=== PATIENT | female | born 1970 | race Two or more races ===

== ENCOUNTER 2017-04-09 11:31 | Observation (INO) | payer OTHER ==
[~2017-04-09] VITALS: Ht 157.5 cm; Wt 73.9 kg
[~2017-04-09 11:31] MED LIST: ALBU8.5H6 IH; CEPH-264; FLUT1DIS3 IH; GABA-585 PO; HYDR-2165; HYDR1TAB10 PO; HYDR25TA PO; METF500T4; ONDA4TAB7 PO; ONDA8TAB12 PO; PROM25TA10; SERT50TA PO
--- NOTE | 2017-04-09 12:03 | ED.ADGEN ---
Past History Past Medical History: Anxiety, Asthma, Diabetes, Other Past Surgical History: Cholecystectomy, Gastric Bypass, Other Smoking: Non-smoker Alcohol Use: None Drug Use: None Adult General Chief Complaint Chief Complaint Chest pain HPI HPI Patient is a 46 year old female who presents with chest pain shortness of breath. She states she was eating breakfast and started having substernal sharp chest pain that does not radiate she also felt short of breath. She denies any nausea or vomiting or diaphoresis. She states she's had this before and thought it was her esophagus spasming since she's had her gastric sleeve placed in May 2017 at [facility]. She states now the pain is intermittent and comes and goes nothing makes it better or worse and she still feels slightly short of breath. She states she does have a family history of heart attack her dad had a heart attack at age of 46. She states she's never been evaluated for cardiac problems in the past. Review of Systems Review of Systems Constitutional: Denies fever or chills [] Eyes: Denies change in visual acuity, redness, or eye pain [] HENT: Denies nasal congestion or sore throat [] Respiratory: Denies cough or shortness of breath [] Cardiovascular: No additional information not addressed in HPI [] GI: Denies abdominal pain, nausea, vomiting, bloody stools or diarrhea [] : Denies dysuria or hematuria [] Musculoskeletal: Denies back pain or joint pain [] Integument: Denies rash or skin lesions [] Neurologic: Denies headache, focal weakness or sensory changes [] Endocrine: Denies polyuria or polydipsia [] Current Medications Current Medications Current Medications Medications (Trade) Dose Ordered Sig/Jaden Start Time Stop Time Status Last Admin Dose Admin Aspirin (Children'S Aspirin) 324 mg 1X ONCE 04/09/17 12:20 04/09/17 12:21 DC 04/09/17 12:20 324 MG Morphine Sulfate (Morphine 2mg Syringe) 2 mg PRN Q2HR PRN 04/09/17 13:00 04/10/17 12:59 Nitroglycerin (Nitrostat) 0.4 mg PRN Q5MIN PRN 04/09/17 13:00 04/10/17 12:59 Cancel Ondansetron HCl (Zofran) 4 mg PRN Q4HRS PRN 04/09/17 13:00 04/10/17 12:59 Allergies Allergies Allergies Coded Allergies Type Severity Reaction Last Updated Verified codeine Allergy Intermediate hives 09/06/16 Yes Physical Exam Physical Exam Constitutional: Well developed, well nourished, no acute distress, non-toxic appearance. [] HENT: Normocephalic, atraumatic, bilateral external ears normal, oropharynx moist, no oral exudates, nose normal. [] Eyes: PERRLA, EOMI, conjunctiva normal, no discharge. [] Neck: Normal range of motion, no tenderness, supple, no stridor. [] Cardiovascular:Heart rate regular rhythm, no murmur [] Lungs & Thorax: Bilateral breath sounds clear to auscultation [] Abdomen: Bowel sounds normal, soft, no tenderness, no masses, no pulsatile masses. [] Skin: Warm, dry, no erythema, no rash. [] Back: No tenderness, no CVA tenderness. [] Extremities: No tenderness, no cyanosis, no clubbing, ROM intact, no edema. [] Neurologic: Alert and oriented X 3, normal motor function, normal sensory function, no focal deficits noted. [] Psychologic: Affect normal, judgement normal, mood normal. [] Current Patient Data Vital Signs Vital Signs Date Time Temp Pulse Resp B/P (MAP) Pulse Ox O2 Delivery O2 Flow Rate FiO2 04/09/17 12:30 91 16 106/83 (91) 93 04/09/17 11:37 Room Air Lab Results Laboratory Tests Test 04/09/17 11:45 White Blood Count 8.1 x10^3/uL (4.0-11.0) Red Blood Count 5.07 x10^6/uL (3.50-5.40) Hemoglobin 15.3 g/dL (12.0-15.5) Hematocrit 45.3 % (36.0-47.0) Mean Corpuscular Volume 89 fL (79-100) Mean Corpuscular Hemoglobin 30 pg (25-35) Mean Corpuscular Hemoglobin Concent 34 g/dL (31-37) Red Cell Distribution Width 13.5 % (11.5-14.5) Platelet Count 232 x10^3/uL (140-400) Neutrophils (%) (Auto) 48 % (31-73) Lymphocytes (%) (Auto) 42 % (24-48) Monocytes (%) (Auto) 8 % (0-9) Eosinophils (%) (Auto) 1 % (0-3) Basophils (%) (Auto) 1 % (0-3) Neutrophils # (Auto) 3.9 x10^3uL (1.8-7.7) Lymphocytes # (Auto) 3.4 x10^3/uL (1.0-4.8) Monocytes # (Auto) 0.6 x10^3/uL (0.0-1.1) Eosinophils # (Auto) 0.1 x10^3/uL (0.0-0.7) Basophils # (Auto) 0.1 x10^3/uL (0.0-0.2) Prothrombin Time 11.0 SEC (9.4-11.4) Prothrombin Time INR 1.1 (0.9-1.1) PTT 26 SEC (23-33) D-Dimer (Helen) < 0.19 mg/L (0.00-0.50) Sodium Level 136 mmol/L (136-145) Potassium Level 3.8 mmol/L (3.5-5.1) Chloride Level 102 mmol/L (98-107) Carbon Dioxide Level 24 mmol/L (21-32) Anion Gap 10 (6-14) Blood Urea Nitrogen 12 mg/dL (7-20) Creatinine 0.9 mg/dL (0.6-1.0) Estimated GFR (Cockcroft-Gault) 67.4 Glucose Level 132 mg/dL (70-99) H Calcium Level 9.3 mg/dL (8.5-10.1) Magnesium Level 2.4 mg/dL (1.8-2.4) Total Bilirubin 0.4 mg/dL (0.2-1.0) Direct Bilirubin 0.1 mg/dL (0.0-0.2) Aspartate Amino Transferase (AST) 18 U/L (15-37) Alanine Aminotransferase (ALT) 30 U/L (14-59) Alkaline Phosphatase 87 U/L (46-116) Creatine Kinase 44 U/L (26-192) Creatine Kinase MB (Mass) < 0.5 ng/mL (0.0-3.6) Creatine Kinase MB Relative Index 1.1 % (0-4) Troponin I Quantitative < 0.017 ng/mL (0-0.055) EX-Qtk-O-Type Natriuretic Peptide 32 pg/mL (0-124) Total Protein 8.4 g/dL (6.4-8.2) H Albumin 3.9 g/dL (3.4-5.0) Lipase 1036 U/L (73-393) H Serum Test, Qualitative Negative (NEG) EKG EKG EKG shows sinus rhythm with rate of [address] elevations, T-wave inversions noted in lead 3, normal axis, QTC 420 ms, as interpreted by me. Radiology/Procedures Radiology/Procedures [address] [address] IMAGING REPORT Signed PATIENT: REJI LIMON ACCOUNT: [id number] : 1970 LOCATION: ER AGE: 46 SEX: F EXAM STATUS: REG ER ORD. PHYSICIAN: VIVEK LINDO MD REASON: chest pain PROCEDURE: PORTABLE CHEST 1V Portable AP chest. History: Chest pain AP view was taken of the chest. Lungs are clear. Heart is normal in size. There is no pleural effusion. Impression: 1. No acute chest disease. DICTATED AND SIGNED BY: EMIGDIO STOVER MD DATE: 04/09/17 1367 CC: VIVEK LINDO MD; RAJENDRA RASMUSSEN MD ~ Course & Med Decision Making Course & Med Decision Making Pertinent Labs and Imaging studies reviewed. (See chart for details) She presented with chest discomfort that was relieved with nitroglycerin. 324 aspirin was given. EKG, troponins are negative. Patient is being admitted to Dr. Victor. I spoke with Dr. Monk, these okay with her being admitted to [facility] for chest pain rule out and likely stress test tomorrow. Patient's agreeable plans in stable condition at this time. 134. Lipase is elevated at 1000. I do not appreciate that she has abdominal pain and her pain resolved after nitroglycerin. Do not believe she has acute pancreatitis at this time however were deferred to hospitalists for further evaluation and treatment. Final Impression Final Impression Chest pain Elevated lipase Problems: Dragon Disclaimer Dragon Disclaimer This electronic medical record was generated, in whole or in part, using a voice recognition dictation system. VIVEK LINDO MD Apr 09, 2017 12:03
[2017-04-09 12:06] LABS: BASO # 0.1 x10^3/uL (0.0-0.2); BASO % 1 % (0-3); EOS # 0.1 x10^3/uL (0.0-0.7); EOS % 1 % (0-3); HEMATOCRIT 45.3 % (36.0-47.0); HEMOGLOBIN 15.3 g/dL (12.0-15.5); LYMPH # 3.4 x10^3/uL (1.0-4.8); LYMPH % 42 % (24-48); MEAN CORPUSCULAR HEMOGLOBIN 30 pg (25-35); MEAN CORPUSCULAR HGB CONC 34 g/dL (31-37); MEAN CORPUSCULAR VOLUME 89 fL (79-100); MONO # 0.6 x10^3/uL (0.0-1.1); MONO % 8 % (0-9); NEUT # 3.9 x10^3uL (1.8-7.7); NEUT % 48 % (31-73); PLATELET COUNT 232 x10^3/uL (140-400); RED BLOOD COUNT 5.07 x10^6/uL (3.50-5.40); RED CELL DISTRIBUTION WIDTH 13.5 % (11.5-14.5); WHITE BLOOD COUNT 8.1 x10^3/uL (4.0-11.0)
[2017-04-09 12:14] LABS: PREG TEST PT QUAL NEGATIVE (NEG)
[2017-04-09] MEDS ORDERED: ASPIRIN 81 MG TAB.CHEW PO ONE (12:20)
[2017-04-09] MEDS: NITROGLYCERIN SUBLINGUAL 0.4 MG BOTTLE OF 25. SL PRN ×2 (12:21→15:54)
[2017-04-09 12:39] LABS: ALBUMIN 3.9 g/dL (3.4-5.0); ALK PHOS 87 U/L (46-116); ALT (SGPT) 30 U/L (14-59); ANION GAP 10 (6-14); AST (SGOT) 18 U/L (15-37); BLOOD UREA NITROGEN 12 mg/dL (7-20); CALCIUM 9.3 mg/dL (8.5-10.1); CARBON DIOXIDE 24 mmol/L (21-32); CHLORIDE 102 mmol/L (98-107); CREATINE KINASE 44 U/L (26-192); CREATININE 0.9 mg/dL (0.6-1.0); DIRECT BILIRUBIN 0.1 mg/dL (0.0-0.2); GFR 67.4; GLUCOSE 132 mg/dL (70-99); LIPASE 1036 U/L (73-393); MAGNESIUM 2.4 mg/dL (1.8-2.4); POTASSIUM 3.8 mmol/L (3.5-5.1); SODIUM 136 mmol/L (136-145); TOTAL BILIRUBIN 0.4 mg/dL (0.2-1.0); TOTAL PROTEIN 8.4 g/dL (6.4-8.2)
[2017-04-09] MEDS ORDERED: NITROGLYCERIN SUBLINGUAL 0.4 MG BOTTLE OF 25. SL PRN (13:00)
[2017-04-09] MEDS ORDERED: ONDANSETRON PF 4 MG/2 ML VIAL. IV PRN (13:00)
--- NOTE | 2017-04-09 14:27 | EKG ---
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
[2017-04-09 15:24] VITALS: BP 107/75
[2017-04-09] MEDS: MORPHINE SULFATE 2 MG/ML DISP.SYRIN. IV PRN ×2 (15:27→21:37)
[2017-04-09] MEDS ORDERED: PHEN30CA2 PO (16:11)
[2017-04-09] MEDS ORDERED: ONDA4TAB12 PO (16:11)
[2017-04-09 16:40] VITALS: BP 107/75
[2017-04-09 19:47] VITALS: BP 100/62
[2017-04-09 21:54] VITALS: BP 108/79
[2017-04-09 22:05] LABS: AMPHETAMINE/METHAMPHETAMINE POS (NEG); BARBITURATES NEG (NEG); BENZODIAZEPINES NEG (NEG); CANNABINOIDS NEG (NEG); COCAINE NEG (NEG); METHADONE NEG (NEG); OPIATES POS (NEG); PHENCYCLIDINE NEG (NEG)
[2017-04-09 22:12] LABS: BACTERIA,URINE MOD /HPF (0-FEW); BILIRUBIN,URINE NEG (NEG); CLARITY,URINE HAZY; COLOR,URINE YELLOW; GLUCOSE,URINE NEG (NEG); NITRITE,URINE NEG (NEG); SQUAMOUS EPITHELIAL CELL,UR MOD /LPF; UROBILINOGEN,URINE 0.2 mg/dL (0.2 mg/dL)
--- NOTE | 2017-04-10 05:03 | ACF ---
Admission Criteria Forms CARDIOLOGY GRG Clinical Indications for Admission to Inpatient Care ( Place 'X' for any and all applicable criteria): Hospital admission is needed for appropriate care of the patient because of ANY ONE of the following (1): [ ] I. Hemodynamic instability as indicated by ALL of the following (1)(2)(3) (4)(5) [ ]a) Vital signs or other findings not as expected for chronic patient condition or baseline [ ]b) Instability indicated by ANY ONE of the following: [ ]i) Hypotension [ ]ii) Symptomatic Tachycardia unresponsive to treatment ( e.g., analgesia, fluids, sedation as indicated) [ ]iii) Inadequate perfusion indicated by ANY ONE of the following: [ ] 1) Lactic acidosis (> 2 mmol/L) [ ] 2) New abnormal capillary refill (> 3 seconds) [ ] 3) Reduced urine output [ ] 4) New altered mental status [ ]iv) Orthostatic vital sign changes unresponsive to treatment (e.g., fluids) [ ]v) IV inotropic or vasopressor medication required to maintain adequate blood pressure or perfusion [ ] II. Severe heart failure as indicated by ANY ONE of the following(17)(18) [ ]a) Respiratory distress [ ]b) Hypotension [ ]c) Anasarca (refractory to outpatient therapy) [ ]d) Cardiac arrhythmias of immediate concern [ ]e) Myocardial ischemia [ ] III. Cardiac arrhythmias or findings of immediate concern indicated by ANY ONE of the following (19)(20): [ ] a) Heart rhythms that are inherently dangerous or unstable indicated by ANY ONE of the following (21)(22)(23): [ ] i) Resuscitated ventricular fibrillation or cardiac arrest [ ] ii) Ventricular escape rhythm [ ] iii) Sustained ventricular tachycardia (30 seconds or more of ventricular rhythm at greater than 100 beats per minute) [ ] iv) Nonsustained ventricular tachycardia and ANY ONE of the following: [ ] 1) Suspected cardiac ischemia as cause or consequence of ventricular tachycardia [ ] 2) In setting of acute myocarditis [ ] b) Unstable cardiac conduction defects indicated by ANY ONE of the following(23)(24)(25) [ ] i) Type II second-degree atrioventricular block [ ]ii) Third-degree atrioventricular block [ ]iii) New-onset left bundle branch block with suspected myocardial ischemia [ ]c) Any heart rhythm and ANY ONE of the following (21)(22)(26)(27) (28) [ ] i) Continuous long-term ECG monitoring needed (e.g., initiation of drug requiring monitoring for more than 24 hours) [ ] ii) Patient has automatic implanted cardioverter defibrillator that is repeatedly firing, malfunctioning, or in need of immediate adjustment of settings beyond the scope of ambulatory or observation care [ ]d) Heart rhythms of concern due to ANY ONE of the following: [ ] i) Hypotension [ ] ii) Respiratory distress [ ] iii) Association with other significant symptoms (e.g., bradycardia with syncope or ongoing dizziness, supraventricular tachycardia with chest pain (14)(15)(17) [ ] IV. Monitoring for cardiac contusion beyond the scope of observation care needed [A](30)(31)(32) [ ] V. Surgical or device complication (e.g., valve replacement complication , pacemaker dysfunction) (35)(41)(44)(45)(46) [ ] . Inpatient palliative care needed. [B](49) Also use Inpatient Palliative Care Criteria [ ] VII. Nonbacterial thrombotic (marantic) endocarditis (36)(43)(47)(48) [X ] VIII. Cardiology condition, symptom, or finding for which emergency and observation care has failed or are not considered appropriate. [ ] IX. Acute valvular disease requiring inpatient as indicated by ANY ONE of the following (41) [ ]a) Acute valvular regurgitation (42) [ ]b) Noninfectious valvulitis (43) [ ]c) Obstructive valve thrombosis [ ]d) Paravalvular leak [ ]e) Other significant valvular disorder remaining after emergency or observation level of care (as appropriate) [ ]X. Pericardial disease requiring inpatient treatment as indicated by ANY ONE of the following (33)(34)(35)(36)(37) [ ]a) Suspected tamponade (38)(39)(40) [ ]b) Hemopericardium [ ]c) Other significant pericardial disorder remaining after emergency or observation level of care (as appropriate) [ ] XI. Cardiac ischemia beyond scope of emergency and observation care. [ ] XII. Hypertension requiring inpatient treatment as indicated by ANY ONE of the following (6)(7)(8) [ ]a) SBP greater than 220 mm Hg or DBP greater than 120 mmHg despite treatment [ ]b) SBP greater than 140 mm Hg or DBP greater than 100 mm Hg with evidence of acute end organ damage as indicated by ANY ONE of the following [ ] i) Encephalopathy [ ] ii) Acute renal failure as indicated by new onset of ANY ONE of the following (9)(10)(11)(12)(13) [ ]1) 3-fold rise in serum creatinine from baseline [ ]2) Serum creatinine greater than 4 mg/dL ( 354 micromoles/L) with acute rise greater than 0.5 mg/dL (44.2 micromoles/L) [ ]3) Reduction of more than 75% in estimated glomerular filtration rate from baseline [ ]4) Estimated glomerular filtration rate less than 35 mL/min/1.73m2 (0.59 mL/sec/1.73m2) in child up to 18 years of age [ ]5) Cessation of urine output indicated by ALL of the following [ ]A. Adequate volume status [ ]B. Inadequate urine output as indicated by ANY ONE of the following [ ]a. Urine output less than 0.3 mL/kg/hr for 24 hours [ ]b. Anuria (urine output less than 0.1 mL/kg/hr) for 12 hours [ ] iii) Aortic dissection [ ] iv) Myocardial Ischemia [ ] v) Left ventricular heart failure [ ]vi) Retinal Hemorrhage [ ]vii) Other significant finding [ ]c) Hypertension in child requiring inpatient treatment as indicated by ALL of the following(14)(15)(16) [ ] i) Outpatient treatment not effective, not available, or not appropriate [ ]ii) SBP or DBP greater than 95th percentile for age [ ]iii) Evidence of acute end organ damage as indicated by ANY ONE of the following [ ]1) Altered mental status [ ]2) Acute renal failure as indicated by new onset of ANY ONE of the following(9)(10)(11)(12)(13) [ ]A. 3-fold rise in serum creatinine from baseline [ ]B. Serum creatinine greater than 4 mg/dL (354 micromoles/L) with acute rise greater than 0.5 mg/dL (44.2 micromoles/L) [ ]C. Reduction of more than 75% in estimated glomerular filtration rate from baseline [ ]D. Estimated glomerular filtration rate less than 35 mL/min/1.73m2 (0.59 mL/sec/1.73m2) in child up to 18 years of age [ ]E. Cessation of urine output indicated by ALL of the following [ ]a. Adequate volume status [ ]b. Inadequate urine output as indicated by ANY ONE of the following [ ]i) Urine output less than 0.3 mL/kg/hr for 24 hours [ ]ii) Anuria ( urine output less than 0.1 mL/kg/hr) for 12 hours [ ]3) Severe headache [ ]4) Visual disturbance [ ]5) Retinal hemorrhage [ ]6) Other significant finding [ ]XIII. Complications of transplanted heart indicated by ANY ONE of the following(61): [ ]a) Acute graft rejection requiring inpatient management (eg, intravenous immunosuppression)(62)(63) [ ]b) Acute graft heart failure indicated by ANY ONE of the following(64): [ ]i) Hemodynamic instability [ ]ii) Cardiac arrhythmias of immediate concern [ ]iii) Pulmonary edema that is very severe (eg, mechanical ventilation needed, imminent or likely, need for 100% oxygen to keep oxygen saturation above 90%) [ ]iv) Pulmonary edema that is persistent as indicated by ALL of the following: [ ]1) New need for oxygen therapy to keep oxygen saturation above 90% (or increased FiO2 need from baseline) [ ]2) Has not improved sufficiently with emergency department or observation care IV diuretics or other heart failure treatments[E] [ ]v) Altered mental status that is severe or persistent [ ]vi) Increased creatinine (new on laboratory test) with reduction of more than 50% in estimated glomerular filtration rate from baseline [ ]vii) Progressively (ongoing) rising creatinine (known from past laboratory test) with reduction of more than 25% in estimated glomerular filtration rate from baseline [ ]viii) Acute renal failure [ ]ix) Acute peripheral ischemia (eg, examination shows pulseless, cool, mottled, or cyanotic extremity) [ ]x) Pulmonary artery catheter monitoring needed [ ]xi) Other sign or symptom of heart failure requiring inpatient treatment (ie, too severe or not responsive to outpatient and observation care treatment) [ ]c) Infection requiring inpatient management (eg, Hemodynamic instability, need for intravenous antimicrobial treatment)(66)(67)(68)(69)(70) [ ]d) Cardiac allograft vasculopathy requiring inpatient management ( eg evidence of cardiac ischemia)(71) [ ]e) Other complication of transplanted heart (eg, stroke, severe pulmonary hypertension, severe valvular dysfunction) requiring inpatient management(72) The original [facility] content created by [facility] has been revised. The portions of the content which have been revised are identified through the use of italic text or in bold, and [facility] has neither reviewed nor approved the modified material. All other unmodified content is copyright [facility]. Please see references footnoted in the original [facility] edition 2016 Admission Criteria Met?: Yes CEASAR ADAN Apr 10, 2017 05:03
[2017-04-10 05:44] VITALS: BP 96/59
[2017-04-10 06:11] LABS: CALCIUM 8.4 mg/dL (8.5-10.1); CREATININE 0.8 mg/dL (0.6-1.0); GFR 77.2; POTASSIUM 3.7 mmol/L (3.5-5.1)
[2017-04-10 06:13] LABS: BASO # 0.1 x10^3/uL (0.0-0.2); BASO % 1 % (0-3); EOS # 0.1 x10^3/uL (0.0-0.7); EOS % 1 % (0-3); LYMPH # 3.3 x10^3/uL (1.0-4.8); LYMPH % 39 % (24-48); MEAN CORPUSCULAR HEMOGLOBIN 30 pg (25-35); MEAN CORPUSCULAR HGB CONC 33 g/dL (31-37); MEAN CORPUSCULAR VOLUME 90 fL (79-100); MONO # 0.6 x10^3/uL (0.0-1.1); MONO % 8 % (0-9); NEUT # 4.4 x10^3uL (1.8-7.7); NEUT % 52 % (31-73); PLATELET COUNT 211 x10^3/uL (140-400); RED BLOOD COUNT 4.69 x10^6/uL (3.50-5.40); RED CELL DISTRIBUTION WIDTH 13.9 % (11.5-14.5); WHITE BLOOD COUNT 8.4 x10^3/uL (4.0-11.0)
--- NOTE | 2017-04-10 08:59 | PDOC2 ---
CONSULT Date of Admission DATE: 04/10/17 TIME: 08:58 Reason for Consult: chest pain Problem List Problems Medical Problems: (1) Chest pain Status: Acute History of Present Illness 46 year old female who presented with complaints of chest pain. She describes pressure that is midsternal and radiates to her left shoulder and arm. Pain is non exertional and resolved after about 10 minutes. She reports pain reoccurred and so she presented to ED where it was resolved with nitrates. She denies any increase with exertion. She reports some mild increase with deep inspiration. She reports associated dyspnea, diaphoresis and nausea. She reports some lightheadedness and palpitations associated with the event. She denies any problems with her functional capacity. Past Medical History obesity, diabetes (on no meds since bariatric surgery), asthma, remote history of esophageal ulcers, degenerative disc disease and chronic back pain. Past Surgical History gastric sleeve in may. Family History father had FL at age 46 Social History non smoker, no significant ETOH, no illicit drugs Current Medications Current Medications Aspirin (Children'S Aspirin) 324 mg 1X ONCE PO Last administered on 04/09/17 12:20; Start 04/09/17 at 12:20; Stop 04/09/17 at 12:21; Status DC Nitroglycerin (Nitrostat) 0.4 mg PRN Q5MIN PRN SL CP RATING > 1/10 Last administered on 04/09/17 15:54; Start 04/09/17 at 12:10; Stop 04/10/17 at 12:09 Ondansetron HCl (Zofran) 4 mg PRN Q4HRS PRN IV NAUSEA/VOMITING; Start 04/09/17 at 13:00; Stop 04/10/17 at 12:59 Morphine Sulfate (Morphine 2mg Syringe) 2 mg PRN Q2HR PRN IV PAIN Last administered on 04/09/17 21:37; Start 04/09/17 at 13:00; Stop 04/10/17 at 12:59 Nitroglycerin (Nitrostat) 0.4 mg PRN Q5MIN PRN SL CHEST PAIN; Start 04/09/17 at 13:00; Stop 04/10/17 at 12:59; Status Cancel Active Scripts Active Zofran (Ondansetron Hcl) 4 Mg Tablet 1 Tab PO Q8HRS PRN Zofran Odt (Ondansetron) 8 Mg Tab.rapdis 8 Mg PO QIDPRN PRN Reported Albuterol Sulfate Hfa Inhaler (Albuterol Sulfate) 8.5 Gm Hfa.aer.ad 90 Mcg IH PRN Advair 250-50 Diskus (Fluticasone/Salmeterol) 1 Each Disk.w.dev 1 Puff IH BID Allergies: Coded Allergies: codeine (Verified Allergy, Intermediate, hives, 09/06/16) Review of System as per HPI with addition of chronic back pain. General: Alert, Oriented X3, Cooperative, No acute distress HEENT: Atraumatic, EOMI, Mucous membr. moist/pink Heart: Regular rate, Normal S1, Normal S2, No murmurs, Other (no gallops, clicks or rubs) Abdomen: Normal bowel sounds, Soft, No tenderness Extremities: No cyanosis, No edema, Normal pulses Neuro: Normal speech Psych/Mental Status: Mental status NL, Mood NL VITALS Vital Signs Date Time Temp Pulse Resp B/P (MAP) Pulse Ox O2 Delivery O2 Flow Rate FiO2 04/10/17 07:52 Room Air 04/10/17 05:44 97.6 77 18 96/59 (71) 98 Labs Laboratory Tests Test 04/09/17 11:45 04/09/17 17:45 04/09/17 21:30 04/09/17 23:40 White Blood Count 8.1 x10^3/uL (4.0-11.0) Red Blood Count 5.07 x10^6/uL (3.50-5.40) Hemoglobin 15.3 g/dL (12.0-15.5) Hematocrit 45.3 % (36.0-47.0) Mean Corpuscular Volume 89 fL (79-100) Mean Corpuscular Hemoglobin 30 pg (25-35) Mean Corpuscular Hemoglobin Concent 34 g/dL (31-37) Red Cell Distribution Width 13.5 % (11.5-14.5) Platelet Count 232 x10^3/uL (140-400) Neutrophils (%) (Auto) 48 % (31-73) Lymphocytes (%) (Auto) 42 % (24-48) Monocytes (%) (Auto) 8 % (0-9) Eosinophils (%) (Auto) 1 % (0-3) Basophils (%) (Auto) 1 % (0-3) Neutrophils # (Auto) 3.9 x10^3uL (1.8-7.7) Lymphocytes # (Auto) 3.4 x10^3/uL (1.0-4.8) Monocytes # (Auto) 0.6 x10^3/uL (0.0-1.1) Eosinophils # (Auto) 0.1 x10^3/uL (0.0-0.7) Basophils # (Auto) 0.1 x10^3/uL (0.0-0.2) Prothrombin Time 11.0 SEC (9.4-11.4) Prothromb Time International Ratio 1.1 (0.9-1.1) Activated Partial Thromboplast Time 26 SEC (23-33) D-Dimer (Helen) < 0.19 mg/L (0.00-0.50) Sodium Level 136 mmol/L (136-145) Potassium Level 3.8 mmol/L (3.5-5.1) Chloride Level 102 mmol/L (98-107) Carbon Dioxide Level 24 mmol/L (21-32) Anion Gap 10 (6-14) Blood Urea Nitrogen 12 mg/dL (7-20) Creatinine 0.9 mg/dL (0.6-1.0) Estimated GFR (Cockcroft-Gault) 67.4 Glucose Level 132 mg/dL (70-99) Calcium Level 9.3 mg/dL (8.5-10.1) Magnesium Level 2.4 mg/dL (1.8-2.4) Total Bilirubin 0.4 mg/dL (0.2-1.0) Direct Bilirubin 0.1 mg/dL (0.0-0.2) Aspartate Amino Transf (AST/SGOT) 18 U/L (15-37) Alanine Aminotransferase (ALT/SGPT) 30 U/L (14-59) Alkaline Phosphatase 87 U/L (46-116) Creatine Kinase 44 U/L (26-192) Creatine Kinase MB (Mass) < 0.5 ng/mL (0.0-3.6) Creatine Kinase MB Relative Index 1.1 % (0-4) Troponin I Quantitative < 0.017 ng/mL (0-0.055) < 0.017 ng/mL (0-0.055) < 0.017 ng/mL (0-0.055) XX-Hgw-E-Type Natriuretic Peptide 32 pg/mL (0-124) Total Protein 8.4 g/dL (6.4-8.2) Albumin 3.9 g/dL (3.4-5.0) Lipase 1036 U/L (73-393) Thyroid Stimulating Hormone (TSH) 3.871 uIU/mL (0.358-3.740) Serum Test, Qualitative Negative (NEG) Urine Collection Type Unknown Urine Color Yellow Urine Clarity Hazy Urine pH 6.0 Urine Specific [place] 1.025 Urine Protein Neg (NEG-TRACE) Urine Glucose (UA) Neg mg/dL (NEG) Urine Ketones (Stick) Neg mg/dL (NEG) Urine Blood Mod (NEG) Urine Nitrite Neg (NEG) Urine Bilirubin Neg (NEG) Urine Urobilinogen Dipstick 0.2 mg/dL (0.2 mg/dL) Urine Leukocyte Esterase Trace (NEG) Urine RBC 1-2 /HPF (0-2) Urine WBC 11-20 /HPF (0-4) Urine Squamous Epithelial Cells Mod /LPF Urine Transitional Epithelial Cells Few /LPF Urine Bacteria Mod /HPF (0-FEW) Urine Mucus Mod /LPF Urine Opiates Screen Pos (NEG) Urine Methadone Screen Neg (NEG) Urine Barbiturates Neg (NEG) Urine Phencyclidine Screen Neg (NEG) Urine Amphetamine/Methamphetamine Pos (NEG) Urine Benzodiazepines Screen Neg (NEG) Urine Cocaine Screen Neg (NEG) Urine Cannabinoids Screen Neg (NEG) Urine Ethyl Alcohol Neg (NEG) Test 04/10/17 05:37 White Blood Count 8.4 x10^3/uL (4.0-11.0) Red Blood Count 4.69 x10^6/uL (3.50-5.40) Hemoglobin 14.0 g/dL (12.0-15.5) Hematocrit 42.0 % (36.0-47.0) Mean Corpuscular Volume 90 fL (79-100) Mean Corpuscular Hemoglobin 30 pg (25-35) Mean Corpuscular Hemoglobin Concent 33 g/dL (31-37) Red Cell Distribution Width 13.9 % (11.5-14.5) Platelet Count 211 x10^3/uL (140-400) Neutrophils (%) (Auto) 52 % (31-73) Lymphocytes (%) (Auto) 39 % (24-48) Monocytes (%) (Auto) 8 % (0-9) Eosinophils (%) (Auto) 1 % (0-3) Basophils (%) (Auto) 1 % (0-3) Neutrophils # (Auto) 4.4 x10^3uL (1.8-7.7) Lymphocytes # (Auto) 3.3 x10^3/uL (1.0-4.8) Monocytes # (Auto) 0.6 x10^3/uL (0.0-1.1) Eosinophils # (Auto) 0.1 x10^3/uL (0.0-0.7) Basophils # (Auto) 0.1 x10^3/uL (0.0-0.2) Sodium Level 138 mmol/L (136-145) Potassium Level 3.7 mmol/L (3.5-5.1) Chloride Level 104 mmol/L (98-107) Carbon Dioxide Level 26 mmol/L (21-32) Anion Gap 8 (6-14) Blood Urea Nitrogen 15 mg/dL (7-20) Creatinine 0.8 mg/dL (0.6-1.0) Estimated GFR (Cockcroft-Gault) 77.2 Glucose Level 113 mg/dL (70-99) Calcium Level 8.4 mg/dL (8.5-10.1) Lipase 140 U/L (73-393) Images EKG - sinus rhythm, non specific st/t abn, delayed R progression. CXR - no acute disease Assessment/Plan 1. chest pain with mixed features, non specific EKG changes and family history of premature coronary disease - FL ruled out. Check echo and MPI today. 2. diabetes mellitus - on no medications since bariatric surgery 3. hypothyroid - per pcp 4. asthma - per pcp 5. unk lipid status - check lipids Problems: CONRAD SEO APRN Apr 10, 2017 08:59
[2017-04-10 12:17] VITALS: BP 94/61
--- NOTE | 2017-04-10 13:01 | PDOC1 ---
History of Present Illness Reason for Visit: Chest pain that is retrosternal radiating to her left shouilder History of Present Illness The pain last for 10 minutes for the first time associated with dyspnea, nausea and diaphoresis. It is not induced by exertion and it recurred and therefore she came to the ER and her pain was relieved by S/L Nitroglycerin She was admitted to [place]/O [place] and consult cardiology team given her strong family history Chief Complaint: CHEST PAIN Allergies: Coded Allergies: codeine (Verified Allergy, Intermediate, hives, 09/06/16) Past Medical History Pulmonary: Asthma GI: GERD, Other (obesity) Musculoskeletal: low back pain (Chronic), Other (degenerative disc disease) Endocrine: Diabetes Review of Systems Review Of Systems Fourteen system , review of systems has been reviewed. See HPI for pertinent positives and negative responses, other fish all other systems are negative, non pertinent or non contributory Allergies: Coded Allergies: codeine (Verified Allergy, Intermediate, hives, 09/06/16) Medications Current Medications Aspirin (Children'S Aspirin) 324 mg 1X ONCE PO Last administered on 04/09/17 12:20; Start 04/09/17 at 12:20; Stop 04/09/17 at 12:21; Status DC Nitroglycerin (Nitrostat) 0.4 mg PRN Q5MIN PRN SL CP RATING > 1/10 Last administered on 04/09/17 15:54; Start 04/09/17 at 12:10; Stop 04/10/17 at 12:09 ; Status DC Ondansetron HCl (Zofran) 4 mg PRN Q4HRS PRN IV NAUSEA/VOMITING; Start 04/09/17 at 13:00; Stop 04/10/17 at 12:59 Morphine Sulfate (Morphine 2mg Syringe) 2 mg PRN Q2HR PRN IV PAIN Last administered on 04/09/17 21:37; Start 04/09/17 at 13:00; Stop 04/10/17 at 12:59 Nitroglycerin (Nitrostat) 0.4 mg PRN Q5MIN PRN SL CHEST PAIN; Start 04/09/17 at 13:00; Stop 04/10/17 at 12:59; Status Cancel Active Scripts Active Zofran (Ondansetron Hcl) 4 Mg Tablet 1 Tab PO Q8HRS PRN Zofran Odt (Ondansetron) 8 Mg Tab.rapdis 8 Mg PO QIDPRN PRN Reported Albuterol Sulfate Hfa Inhaler (Albuterol Sulfate) 8.5 Gm Hfa.aer.ad 90 Mcg IH PRN Advair 250-50 Diskus (Fluticasone/Salmeterol) 1 Each Disk.w.dev 1 Puff IH BID Exam Vital Signs Vital Signs Date Time Temp Pulse Resp B/P (MAP) Pulse Ox O2 Delivery O2 Flow Rate FiO2 04/10/17 12:17 97.7 70 20 94/61 (72) 97 Room Air General Appearance: Alert, Oriented X3, Cooperative, No acute distress HEENT: Atraumatic, PERRLA, EOMI Respiratory: Clear to auscultation Heart: Regular rate, Normal S1, Normal S2, No murmurs, Gallops, Rubs Abdominal: Normal bowel sounds, No tenderness, No masses Extremities: No clubbing, No cyanosis, No edema, No tenderness/swelling Skin: No rashes, No breakdown, No significant lesion Neuro: Normal gait, Normal speech, Strength at 5/5 X4 ext, Normal tone, Sensation intact, Reflexes 2+ Assessment/Plan Assessment/Plan CP to r/o [place] Will do two more sets of cardiac enzymes check lipid profile consult cardiology COURSE Allergies Coded Allergies Type Severity Reaction Last Updated Verified codeine Allergy Intermediate hives 09/06/16 Yes Laboratory Tests Test 04/09/17 17:45 04/09/17 21:30 04/09/17 23:40 04/10/17 05:37 Troponin I Quantitative < 0.017 ng/mL (0-0.055) < 0.017 ng/mL (0-0.055) Urine Collection Type Unknown Urine Color Yellow Urine Clarity Hazy Urine pH 6.0 Urine Specific [place] 1.025 Urine Protein Neg (NEG-TRACE) Urine Glucose (UA) Neg mg/dL (NEG) Urine Ketones (Stick) Neg mg/dL (NEG) Urine Blood Mod (NEG) Urine Nitrite Neg (NEG) Urine Bilirubin Neg (NEG) Urine Urobilinogen Dipstick 0.2 mg/dL (0.2 mg/dL) Urine Leukocyte Esterase Trace (NEG) Urine RBC 1-2 /HPF (0-2) Urine WBC 11-20 /HPF (0-4) Urine Squamous Epithelial Cells Mod /LPF Urine Transitional Epithelial Cells Few /LPF Urine Bacteria Mod /HPF (0-FEW) Urine Mucus Mod /LPF Urine Opiates Screen Pos (NEG) Urine Methadone Screen Neg (NEG) Urine Barbiturates Neg (NEG) Urine Phencyclidine Screen Neg (NEG) Urine Amphetamine/Methamphetamine Pos (NEG) Urine Benzodiazepines Screen Neg (NEG) Urine Cocaine Screen Neg (NEG) Urine Cannabinoids Screen Neg (NEG) Urine Ethyl Alcohol Neg (NEG) White Blood Count 8.4 x10^3/uL (4.0-11.0) Red Blood Count 4.69 x10^6/uL (3.50-5.40) Hemoglobin 14.0 g/dL (12.0-15.5) Hematocrit 42.0 % (36.0-47.0) Mean Corpuscular Volume 90 fL (79-100) Mean Corpuscular Hemoglobin 30 pg (25-35) Mean Corpuscular Hemoglobin Concent 33 g/dL (31-37) Red Cell Distribution Width 13.9 % (11.5-14.5) Platelet Count 211 x10^3/uL (140-400) Neutrophils (%) (Auto) 52 % (31-73) Lymphocytes (%) (Auto) 39 % (24-48) Monocytes (%) (Auto) 8 % (0-9) Eosinophils (%) (Auto) 1 % (0-3) Basophils (%) (Auto) 1 % (0-3) Neutrophils # (Auto) 4.4 x10^3uL (1.8-7.7) Lymphocytes # (Auto) 3.3 x10^3/uL (1.0-4.8) Monocytes # (Auto) 0.6 x10^3/uL (0.0-1.1) Eosinophils # (Auto) 0.1 x10^3/uL (0.0-0.7) Basophils # (Auto) 0.1 x10^3/uL (0.0-0.2) Sodium Level 138 mmol/L (136-145) Potassium Level 3.7 mmol/L (3.5-5.1) Chloride Level 104 mmol/L (98-107) Carbon Dioxide Level 26 mmol/L (21-32) Anion Gap 8 (6-14) Blood Urea Nitrogen 15 mg/dL (7-20) Creatinine 0.8 mg/dL (0.6-1.0) Estimated GFR (Cockcroft-Gault) 77.2 Glucose Level 113 mg/dL (70-99) Calcium Level 8.4 mg/dL (8.5-10.1) Lipase 140 U/L (73-393) Current Medications Medications (Trade) Dose Ordered Sig/Jaden Route PRN Reason Start Time Stop Time Status Last Admin Dose Admin Ondansetron HCl (Zofran) 4 mg PRN Q4HRS PRN IV NAUSEA/VOMITING 04/09/17 13:00 04/10/17 12:59 Morphine Sulfate (Morphine 2mg Syringe) 2 mg PRN Q2HR PRN IV PAIN 04/09/17 13:00 04/10/17 12:59 04/09/17 21:37 Nitroglycerin (Nitrostat) 0.4 mg PRN Q5MIN PRN SL CHEST PAIN 04/09/17 13:00 04/10/17 12:59 Cancel I & O 04/10/17 00:00 Intake Total 440 ml Balance 440 ml Orders Procedure Category Date Status Time Ed Bridge Order ADT 04/09/17 Transmitted 12:52 Code Status CODE 04/09/17 Transmitted 12:52 Vital Signs, Per MARY 04/09/17 In Process Protocol 12:52 Fall Precautions MARY 04/09/17 In Process 12:52 Cbc W Autodiff LAB 04/10/17 Complete 06:00 Basic Metabolic Panel LAB 04/10/17 Complete 06:00 Ondansetron Pf PHA 04/09/17 In Process (Zofran) 13:00 Morphine Sulfate PHA 04/09/17 In Process (Morphine 2mg Syringe) 13:00 Consult Physician By CONS 04/09/17 Transmitted Name 12:52 Troponin I LAB 04/09/17 Complete 17:52 Troponin I LAB 04/09/17 Complete 23:52 Admit Orders ADT 04/09/17 Transmitted Isolation OTHER 04/09/17 Transmitted 16:44 Cardiac DIET 04/09/17 Complete Dinner Mrsa By Pcr LAB 04/09/17 In Process 16:58 Urine Culture MASON 04/09/17 In Process 22:16 Lipase LAB 04/10/17 Complete 05:00 Nothing By Mouth DIET 04/10/17 Transmitted Breakfast Echocardiogram ECHO 04/10/17 Logged 09:13 Mpi Spect 1day NM 04/10/17 Logged Rest&St Tread 09:13 Lipid Panel LAB 04/10/17 In Process 09:14 Nm Injection NM 04/10/17 Taken Cv Stress Test NM 04/10/17 Taken Tracing Only Vital Signs Date Time Temp Pulse Resp B/P (MAP) Pulse Ox O2 Delivery O2 Flow Rate FiO2 04/10/17 12:17 97.7 70 20 94/61 (72) 97 Room Air ALVARO ANGULO MD Apr 10, 2017 13:01
--- NOTE | 2017-04-10 14:16 | RAD ---
APPROVED REPORT Test Type: Exercise Stress Nurse/Tech: LAURIE Hodge ARRT (R) (N) Test Indications: CP, ABN EKG Cardiac History: See [facility] [employer] EMR NKDA Medications: See Electronic Medical Record Medical History: See Electronic Medical Record Resting ECG: SR, NS, T ABN. Resting Heart Rate: 79 bpm Resting Blood Pressure: 107/66mmHg Pretest Chest Pain: None Nurse/Tech Notes NO CP, MILD SOB AT PEAK. NO ACUTE EKG CHANGES. Consent: The procedure was explained to the patient in lay terms. Informed consent was witnessed. Kee eout was entered into [employer]Class. History and Stress Test performed by LAURIE Hodge ARRT (R) (N) Stress Symptoms Dyspnea POST EXERCISE Reason for Termination: Fatigue Target HR: Yes Max HR: 174 bpm 118% of Maximum Predicted HR: 147 bpm Exercise duration: 9 min:sec, 3 Stage Exercise capacity: 10METs Max Blood Pressure: 130/80mmHg Blood Pressure response to exercise: Normal blood pressure response during stress. Chest Pain: No. ST Change: No. INTERPRETATION Stress EKG Conclusion: Baseline EKG showed sinus rhythm. No ischemic changes at peak stress. No arr hythmias. Imaging Protocol IMAGE PROTOCOL: Rest Tc-99m/stress Tc-99m 1 day Rest: Stress: Viability: Radiopharm.Tc99m [id number] Sestamibi Ozth98nZd 33mCi Img Date 04/10/2017 04/10/2017 Inj-Img [id number]. 45min. Rest Admin Site:IV - Right AntecubitalAdministrator: LAURIE Hodge ARRT (R)(N) Stress Admin Site: IV - Right AntecubitalAdministrator: LAURIE Hodge ARRT (R)(N) STRESS DATA End Diast. Vol.72.0mlAv. Heart Rate97.0bpm LVEDV index BSA1.0mlCardiac Output0.1L/min End Syst. Vol.13.0mlCO Index BSA5.7L/min LVESV index BSA0.0mlMyocardial Avwq906.0g Eject. Owvfkpix60.0% Stress Rates Pk. Fill Rate3.79EDV/secLVtime Pk. Fill 92.19msec Pk. Empty Rate4.36ESV/secLVtime Pk. Mnsaw602.82msec 09/27 Pk. Fill2.55EDV/sec Stress Scores Regional WT0.00Summed WT0.00 Regional WM0.00Summed WM0.00 Study quality was good. Left Ventricular size was Normal at Rest and Stress. Lung uptake was Normal. Left Ventricular ejection fraction is 82%. The rest and stress images show normal perfusion, normal contraction and thickening. LV Perf. Quant 17 Seg. SSS0.00 17 Seg. SRS3.00 17 Seg. SDS0.00 Stress Defect Extent (% LAD)0.00Rest Defect Extent (% LAD)0.00Rev. Defect Extent (% LAD)0.00 Stress Defect Extent (% LCX) 0.00Rest Defect Extent (% LCX)8.80Rev. Defect Extent (% LCX)0.00 Stress Defect Extent (% RCA)0.00Rest Defect Extent (% RCA)0.00Rev. Defect Extent (% RCA)0.00 Stress Defect Extent (% GILBERT)0.00Rest Defect Extent (% GILBERT)3.30Rev. Defect Extent (% GILBERT)0.00 Conclusion 1. Treadmill exercise cardioisotope stress test did not show any evidence of ischemia or infarct. 2. Normal left ventricular systolic function with ejection fraction calculated at 82%. 3. Low risk for cardiac events.
--- NOTE | 2017-04-10 16:08 | PDOC3 ---
Discharge Summary Visit Information Date of Admission: Apr 09, 2017 Date of Discharge: Apr 10, 2017 Admitting Diagnosis: CHEST PAIN Admitting Diagnosis Comments Chest pain associated with nausea , diaphoresis and shortness of breath lasting about 10 minutes The recurred and on arrival to ER it responded to S/L NTG Final Diagnosis Problems Medical Problems: (1) Chest pain Status: Acute Problems: Brief Hospital Course Allergies Allergies Coded Allergies Type Severity Reaction Last Updated Verified codeine Allergy Intermediate hives 09/06/16 Yes Vital Signs Vital Signs Date Time Temp Pulse Resp B/P (MAP) Pulse Ox O2 Delivery O2 Flow Rate FiO2 04/10/17 12:17 97.7 70 20 94/61 (72) 97 Room Air Lab Results Laboratory Tests Test 04/09/17 11:45 04/09/17 17:45 04/09/17 21:30 04/09/17 23:40 White Blood Count 8.1 x10^3/uL (4.0-11.0) Red Blood Count 5.07 x10^6/uL (3.50-5.40) Hemoglobin 15.3 g/dL (12.0-15.5) Hematocrit 45.3 % (36.0-47.0) Mean Corpuscular Volume 89 fL (79-100) Mean Corpuscular Hemoglobin 30 pg (25-35) Mean Corpuscular Hemoglobin Concent 34 g/dL (31-37) Red Cell Distribution Width 13.5 % (11.5-14.5) Platelet Count 232 x10^3/uL (140-400) Neutrophils (%) (Auto) 48 % (31-73) Lymphocytes (%) (Auto) 42 % (24-48) Monocytes (%) (Auto) 8 % (0-9) Eosinophils (%) (Auto) 1 % (0-3) Basophils (%) (Auto) 1 % (0-3) Neutrophils # (Auto) 3.9 x10^3uL (1.8-7.7) Lymphocytes # (Auto) 3.4 x10^3/uL (1.0-4.8) Monocytes # (Auto) 0.6 x10^3/uL (0.0-1.1) Eosinophils # (Auto) 0.1 x10^3/uL (0.0-0.7) Basophils # (Auto) 0.1 x10^3/uL (0.0-0.2) Prothrombin Time 11.0 SEC (9.4-11.4) Prothromb Time International Ratio 1.1 (0.9-1.1) Activated Partial Thromboplast Time 26 SEC (23-33) D-Dimer (Helen) < 0.19 mg/L (0.00-0.50) Sodium Level 136 mmol/L (136-145) Potassium Level 3.8 mmol/L (3.5-5.1) Chloride Level 102 mmol/L (98-107) Carbon Dioxide Level 24 mmol/L (21-32) Anion Gap 10 (6-14) Blood Urea Nitrogen 12 mg/dL (7-20) Creatinine 0.9 mg/dL (0.6-1.0) Estimated GFR (Cockcroft-Gault) 67.4 Glucose Level 132 mg/dL (70-99) Calcium Level 9.3 mg/dL (8.5-10.1) Magnesium Level 2.4 mg/dL (1.8-2.4) Total Bilirubin 0.4 mg/dL (0.2-1.0) Direct Bilirubin 0.1 mg/dL (0.0-0.2) Aspartate Amino Transf (AST/SGOT) 18 U/L (15-37) Alanine Aminotransferase (ALT/SGPT) 30 U/L (14-59) Alkaline Phosphatase 87 U/L (46-116) Creatine Kinase 44 U/L (26-192) Creatine Kinase MB (Mass) < 0.5 ng/mL (0.0-3.6) Creatine Kinase MB Relative Index 1.1 % (0-4) Troponin I Quantitative < 0.017 ng/mL (0-0.055) < 0.017 ng/mL (0-0.055) < 0.017 ng/mL (0-0.055) JT-Qqy-Z-Type Natriuretic Peptide 32 pg/mL (0-124) Total Protein 8.4 g/dL (6.4-8.2) Albumin 3.9 g/dL (3.4-5.0) Lipase 1036 U/L (73-393) Thyroid Stimulating Hormone (TSH) 3.871 uIU/mL (0.358-3.740) Serum Test, Qualitative Negative (NEG) Urine Collection Type Unknown Urine Color Yellow Urine Clarity Hazy Urine pH 6.0 Urine Specific [place] 1.025 Urine Protein Neg (NEG-TRACE) Urine Glucose (UA) Neg mg/dL (NEG) Urine Ketones (Stick) Neg mg/dL (NEG) Urine Blood Mod (NEG) Urine Nitrite Neg (NEG) Urine Bilirubin Neg (NEG) Urine Urobilinogen Dipstick 0.2 mg/dL (0.2 mg/dL) Urine Leukocyte Esterase Trace (NEG) Urine RBC 1-2 /HPF (0-2) Urine WBC 11-20 /HPF (0-4) Urine Squamous Epithelial Cells Mod /LPF Urine Transitional Epithelial Cells Few /LPF Urine Bacteria Mod /HPF (0-FEW) Urine Mucus Mod /LPF Urine Opiates Screen Pos (NEG) Urine Methadone Screen Neg (NEG) Urine Barbiturates Neg (NEG) Urine Phencyclidine Screen Neg (NEG) Urine Amphetamine/Methamphetamine Pos (NEG) Urine Benzodiazepines Screen Neg (NEG) Urine Cocaine Screen Neg (NEG) Urine Cannabinoids Screen Neg (NEG) Urine Ethyl Alcohol Neg (NEG) Test 04/10/17 05:37 White Blood Count 8.4 x10^3/uL (4.0-11.0) Red Blood Count 4.69 x10^6/uL (3.50-5.40) Hemoglobin 14.0 g/dL (12.0-15.5) Hematocrit 42.0 % (36.0-47.0) Mean Corpuscular Volume 90 fL (79-100) Mean Corpuscular Hemoglobin 30 pg (25-35) Mean Corpuscular Hemoglobin Concent 33 g/dL (31-37) Red Cell Distribution Width 13.9 % (11.5-14.5) Platelet Count 211 x10^3/uL (140-400) Neutrophils (%) (Auto) 52 % (31-73) Lymphocytes (%) (Auto) 39 % (24-48) Monocytes (%) (Auto) 8 % (0-9) Eosinophils (%) (Auto) 1 % (0-3) Basophils (%) (Auto) 1 % (0-3) Neutrophils # (Auto) 4.4 x10^3uL (1.8-7.7) Lymphocytes # (Auto) 3.3 x10^3/uL (1.0-4.8) Monocytes # (Auto) 0.6 x10^3/uL (0.0-1.1) Eosinophils # (Auto) 0.1 x10^3/uL (0.0-0.7) Basophils # (Auto) 0.1 x10^3/uL (0.0-0.2) Sodium Level 138 mmol/L (136-145) Potassium Level 3.7 mmol/L (3.5-5.1) Chloride Level 104 mmol/L (98-107) Carbon Dioxide Level 26 mmol/L (21-32) Anion Gap 8 (6-14) Blood Urea Nitrogen 15 mg/dL (7-20) Creatinine 0.8 mg/dL (0.6-1.0) Estimated GFR (Cockcroft-Gault) 77.2 Glucose Level 113 mg/dL (70-99) Calcium Level 8.4 mg/dL (8.5-10.1) Triglycerides Level 80 mg/dL (0-150) Cholesterol Level 173 mg/dL (0-200) LDL Cholesterol, Calculated 110 mg/dL (0-100) VLDL Cholesterol, Calculated 16 mg/dL (0-40) Non-HDL Cholesterol Calculated 126 mg/dL (0-129) HDL Cholesterol 47 mg/dL (40-60) Cholesterol/HDL Ratio 3.0 Lipase 140 U/L (73-393) Brief Hospital Course Ms. Whitfield is a 46 old [sex] who presented with chest pain She has three sets of cardiac enzymes were negative Her nuclear stress test wwas negative for ischemia She discharged to F/U with Cardiology team in one week Discharge Information Condition at Discharge: Stable Follow Up: Weeks Disposition/Orders: D/C to Home Dischare Medications Current Medications Aspirin (Children'S Aspirin) 324 mg 1X ONCE PO Last administered on 04/09/17 12:20; Start 04/09/17 at 12:20; Stop 04/09/17 at 12:21; Status DC Nitroglycerin (Nitrostat) 0.4 mg PRN Q5MIN PRN SL CP RATING > 1/10 Last administered on 04/09/17 15:54; Start 04/09/17 at 12:10; Stop 04/10/17 at 12:09 ; Status DC Ondansetron HCl (Zofran) 4 mg PRN Q4HRS PRN IV NAUSEA/VOMITING; Start 04/09/17 at 13:00; Stop 04/10/17 at 12:59; Status DC Morphine Sulfate (Morphine 2mg Syringe) 2 mg PRN Q2HR PRN IV PAIN Last administered on 04/09/17t 21:37; Start 04/09/17 at 13:00; Stop 04/10/17 at 12:59 ; Status DC Nitroglycerin (Nitrostat) 0.4 mg PRN Q5MIN PRN SL CHEST PAIN; Start 04/09/17 at 13:00; Stop 04/10/17 at 12:59; Status Cancel Active Scripts Active Zofran (Ondansetron Hcl) 4 Mg Tablet 1 Tab PO Q8HRS PRN Zofran Odt (Ondansetron) 8 Mg Tab.rapdis 8 Mg PO QIDPRN PRN Reported Albuterol Sulfate Hfa Inhaler (Albuterol Sulfate) 8.5 Gm Hfa.aer.ad 90 Mcg IH PRN Advair 250-50 Diskus (Fluticasone/Salmeterol) 1 Each Disk.w.dev 1 Puff IH BID Patient Instructions Patient Instuctions The patient was informed of the results of all her lab testing and her nuclear stress test She was adviced to F/U with the cardiology team She can go to work tomorrow ALVARO ANGULO MD Apr 10, 2017 16:07
== END 2017-04-10 16:51 | disposition home or self-care (01) ==
LOC: ER 11:31 → INTOOBSV 15:07 → ICU 15:07
PROVIDERS: ADMIT Family Medicine; ATTEND Family Medicine
DX: R07.2 Precordial pain (principal); K21.9 Gastro-esophageal reflux disease without esophagitis; E66.9 Obesity, unspecified; J45.909 Unspecified asthma, uncomplicated; G89.29 Other chronic pain; E11.9 Type 2 diabetes mellitus without complications; F41.9 Anxiety disorder, unspecified; E03.9 Hypothyroidism, unspecified; R74.8 Abnormal levels of other serum enzymes; Z98.84 Bariatric surgery status; Z87.19 Personal history of other diseases of the digestive system; Z82.49 Family history of ischemic heart disease and other diseases of the circulatory system
CPT/HCPCS: 36415; 71010; 78452; 80048; 80061; 80076; 81001; 82553; 83690; 83735; 83880; 84443; 84484; 84703; 85027; 85379; 85610; 85730; 87086; 87641; 93005; 93017; 96374; 96376; 99285; A9500; G0378; G0481; J2270; G0379

== ENCOUNTER 2017-10-20 14:30 | Emergency (ER) | payer OTHER ==
[~2017-10-20 14:30] MED LIST changes: +ONDA4TAB12 PO; +PHEN30CA3 PO
--- NOTE | 2017-10-20 14:50 | EKG ---
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
--- NOTE | 2017-10-20 15:04 | RAD ---
PORTABLE CHEST 1V History: Chest pain, vomiting today Comparison: None. Findings: Single view of the chest is submitted. There is no pneumothorax, pleural fluid, lobar infiltrate. Heart size is within normal limits. Impression: 1. There is no radiographic evidence of acute cardiopulmonary disease. Electronically signed by: Anatoly Jolley MD (10/20/2017 3:00 PM) [id number]
[2017-10-20 15:05] LABS: BASO # 0.1 x10^3/uL (0.0-0.2); BASO % 1 % (0-3); EOS # 0.1 x10^3/uL (0.0-0.7); EOS % 2 % (0-3); HEMATOCRIT 43.4 % (36.0-47.0); HEMOGLOBIN 14.6 g/dL (12.0-15.5); LYMPH # 2.9 x10^3/uL (1.0-4.8); LYMPH % 37 % (24-48); MEAN CORPUSCULAR HEMOGLOBIN 30 pg (25-35); MEAN CORPUSCULAR HGB CONC 34 g/dL (31-37); MEAN CORPUSCULAR VOLUME 90 fL (79-100); MONO # 0.7 x10^3/uL (0.0-1.1); MONO % 9 % (0-9); NEUT # 4.1 x10^3uL (1.8-7.7); NEUT % 52 % (31-73); PLATELET COUNT 216 x10^3/uL (140-400); RED CELL DISTRIBUTION WIDTH 14.1 % (11.5-14.5); WHITE BLOOD COUNT 7.9 x10^3/uL (4.0-11.0)
[2017-10-20] MEDS ORDERED: ONDANSETRON PF 4 MG/2 ML VIAL. IV ONE (15:15)
[2017-10-20 15:30] LABS: ALBUMIN 3.6 g/dL (3.4-5.0); ALBUMIN/GLOBULIN RATIO 0.8 (1.0-1.7); ALK PHOS 81 U/L (46-116); ALT (SGPT) 21 U/L (14-59); ANION GAP 13 (6-14); AST (SGOT) 11 U/L (15-37); BLOOD UREA NITROGEN 16 mg/dL (7-20); BUN/CREATININE RATIO 20 (6-20); CARBON DIOXIDE 21 mmol/L (21-32); CHLORIDE 107 mmol/L (98-107); CREATINE KINASE 52 U/L (26-192); CREATININE 0.8 mg/dL (0.6-1.0); DIRECT BILIRUBIN 0.1 mg/dL (0.0-0.2); GFR 76.9; GLUCOSE 119 mg/dL (70-99); POTASSIUM 3.8 mmol/L (3.5-5.1); SODIUM 141 mmol/L (136-145); TOTAL BILIRUBIN 0.2 mg/dL (0.2-1.0); TOTAL PROTEIN 8.1 g/dL (6.4-8.2)
[2017-10-20] MEDS ORDERED: oxyCODONE/APAP 5/325 1 TAB TABLET PO ONE (15:45)
[2017-10-20] MEDS ORDERED: LIDO:MAALOX 1:1 20 ML SINGLE DOSE PO ONE (16:00)
--- NOTE | 2017-10-20 16:04 | PHYS DOC ---
Past History Past Medical History: Anxiety, Asthma, Diabetes, Other Past Surgical History: Cholecystectomy, Gastric Bypass, Other Smoking: Non-smoker Alcohol Use: None Drug Use: None Adult General Chief Complaint Chief Complaint: CHEST PAIN HPI HPI 47-year-old female patient states she had one episode of vomiting an hour after eating left over from before her lunch and felt pressure feeling pain in substernal area with radiation to her back and associated with shortness of breath and nausea and dizziness and palpitation. Patient denies history of chest pain previously. She has history of diabetes and family history of coronary artery disease and denies smoking and having high cholesterol hypertension. Patient rated her pain 9/10. Review of Systems Review of Systems Constitutional: Denies fever or chills [] Eyes: Denies change in visual acuity, redness, or eye pain [] HENT: Denies nasal congestion or sore throat [] Respiratory: Denies cough, reports shortness of breath [] Cardiovascular: No additional information not addressed in HPI [] GI: Denies abdominal pain, bloody stools or diarrhea, reports nausea and vomiting [] : Denies dysuria or hematuria [] Musculoskeletal: Denies back pain or joint pain [] Integument: Denies rash or skin lesions [] Neurologic: Denies headache, focal weakness or sensory changes [] Endocrine: Denies polyuria or polydipsia [] All other systems were reviewed and found to be within normal limits, except as documented in this note. Current Medications Current Medications Current Medications Medications (Trade) Dose Ordered Sig/Jaden Start Time Stop Time Status Last Admin Dose Admin Ondansetron HCl (Zofran) 4 mg 1X ONCE 10/20/17 15:15 10/20/17 15:16 DC Oxycodone/ Acetaminophen (Percocet 5/325) 1 tab 1X ONCE 10/20/17 15:45 10/20/17 15:46 UNV Allergies Allergies Allergies Coded Allergies Type Severity Reaction Last Updated Verified codeine Allergy Intermediate hives 09/06/16 Yes Physical Exam Physical Exam Constitutional: Well developed, well nourished,mild distress, non-toxic appearance. [] HENT: Normocephalic, atraumatic, bilateral external ears normal, oropharynx moist, no oral exudates, nose normal. [] Eyes: PERRLA, EOMI, conjunctiva normal, no discharge. [] Neck: Normal range of motion, no tenderness, supple, no stridor. [] Cardiovascular:Heart rate regular rhythm, no murmur [] Lungs & Thorax: Bilateral breath sounds clear to auscultation , mild reproducible chest wall pain[] Abdomen: Bowel sounds normal, soft, no tenderness, no masses, no pulsatile masses. [] Skin: Warm, dry, no erythema, no rash. [] Back: No tenderness, no CVA tenderness. [] Extremities: No tenderness, no cyanosis, no clubbing, ROM intact, no edema. [] Neurologic: Alert and oriented X 3, normal motor function, normal sensory function, no focal deficits noted. [] Psychologic: Affect normal, judgement normal, mood normal. [] Current Patient Data Lab Results Laboratory Tests Test 10/20/17 14:50 White Blood Count 7.9 x10^3/uL (4.0-11.0) Red Blood Count 4.80 x10^6/uL (3.50-5.40) Hemoglobin 14.6 g/dL (12.0-15.5) Hematocrit 43.4 % (36.0-47.0) Mean Corpuscular Volume 90 fL (79-100) Mean Corpuscular Hemoglobin 30 pg (25-35) Mean Corpuscular Hemoglobin Concent 34 g/dL (31-37) Red Cell Distribution Width 14.1 % (11.5-14.5) Platelet Count 216 x10^3/uL (140-400) Neutrophils (%) (Auto) 52 % (31-73) Lymphocytes (%) (Auto) 37 % (24-48) Monocytes (%) (Auto) 9 % (0-9) Eosinophils (%) (Auto) 2 % (0-3) Basophils (%) (Auto) 1 % (0-3) Neutrophils # (Auto) 4.1 x10^3uL (1.8-7.7) Lymphocytes # (Auto) 2.9 x10^3/uL (1.0-4.8) Monocytes # (Auto) 0.7 x10^3/uL (0.0-1.1) Eosinophils # (Auto) 0.1 x10^3/uL (0.0-0.7) Basophils # (Auto) 0.1 x10^3/uL (0.0-0.2) Prothrombin Time 11.0 SEC (9.4-11.4) Prothrombin Time INR 1.1 (0.9-1.1) Sodium Level 141 mmol/L (136-145) Potassium Level 3.8 mmol/L (3.5-5.1) Chloride Level 107 mmol/L (98-107) Carbon Dioxide Level 21 mmol/L (21-32) Anion Gap 13 (6-14) Blood Urea Nitrogen 16 mg/dL (7-20) Creatinine 0.8 mg/dL (0.6-1.0) Estimated GFR (Cockcroft-Gault) 76.9 BUN/Creatinine Ratio 20 (6-20) Glucose Level 119 mg/dL (70-99) H Calcium Level 9.0 mg/dL (8.5-10.1) Total Bilirubin 0.2 mg/dL (0.2-1.0) Direct Bilirubin 0.1 mg/dL (0.0-0.2) Aspartate Amino Transferase (AST) 11 U/L (15-37) L Alanine Aminotransferase (ALT) 21 U/L (14-59) Alkaline Phosphatase 81 U/L (46-116) Creatine Kinase 52 U/L (26-192) Creatine Kinase MB (Mass) < 0.5 ng/mL (0.0-3.6) Creatine Kinase MB Relative Index 1.0 % (0-4) Troponin I Quantitative < 0.017 ng/mL (0-0.055) RG-Oel-Q-Type Natriuretic Peptide 51 pg/mL (0-124) Total Protein 8.1 g/dL (6.4-8.2) Albumin 3.6 g/dL (3.4-5.0) Albumin/Globulin Ratio 0.8 (1.0-1.7) L EKG EKG EKG interpreted by me. EKG at 1445 showed normal sinus rhythm at rate of 81, no acute ST-T wave abnormality[] Radiology/Procedures Radiology/Procedures [Chest x-ray did not show acute problem] Course & Med Decision Making Course & Med Decision Making Pertinent Labs and Imaging studies reviewed. (See chart for details) Evaluation of patient in ER showed 47-year-old female patient with complaining of chest pain after one episode of vomiting. Patient had unremarkable physical exam and EKG and labs and felt better with GI cocktail and Zofran and Reglan. Patient was anxious about her pain and informed about needs to follow-up with her primary care physician. Plan discharge patient home with prescription of Zofran. [] Dragon Disclaimer Dragon Disclaimer This electronic medical record was generated, in whole or in part, using a voice recognition dictation system. Departure Departure: Impression: Primary Impression: Acute gastritis Additional Impression: Non-cardiac chest pain Disposition: HOME, SELF-CARE (At 1654) Condition: IMPROVED Referrals: RAJENDRA RASMUSSEN MD (PCP) Patient Instructions: Gastritis, Adult Additional Instructions: Take liquid diet today Follow-up with your primary care physician in 2-3 days Return to ER if not getting better Scripts Ondansetron (ZOFRAN ODT) 4 Mg Tab.rapdis 1 TAB SL Q8HRS, #15 TAB Prov: MATTHIEU NOLAN MD 10/20/17 Problem Qualifiers MATTHIEU NOLAN MD Oct 20, 2017 16:04
[2017-10-20 16:39] LABS: BILIRUBIN,URINE NEG (NEG); CLARITY,URINE CLEAR; COLOR,URINE YELLOW; GLUCOSE,URINE NEG (NEG); UROBILINOGEN,URINE 0.2 mg/dL (0.2 mg/dL)
[2017-10-20 16:40] LABS: BACTERIA,URINE 0 /HPF (0-FEW); NITRITE,URINE NEG (NEG); RBC,URINE 0 /HPF (0-2); SQUAMOUS EPITHELIAL CELL,UR OCC /LPF
[2017-10-20] MEDS ORDERED: ONDA4TAB10 SL (16:55)
[2017-10-20 17:00] VITALS: BP 124/82
[2017-10-20] MEDS ORDERED: METOCLOPRAMIDE HCL 10 MG/2 ML VIAL. IV ONE (17:00)
== END 2017-10-20 17:20 | disposition home or self-care (01) ==
LOC: ER 14:30
DX: K29.00 Acute gastritis without bleeding (principal); R07.89 Other chest pain; J45.909 Unspecified asthma, uncomplicated; E11.9 Type 2 diabetes mellitus without complications; F41.9 Anxiety disorder, unspecified; Z88.5 Allergy status to narcotic agent
CPT/HCPCS: 36415; 71045; 80053; 80076; 81001; 82553; 83690; 83880; 84484; 85025; 85610; 87086; 93005; 96374; 96375; 99285; J2405; J2765

== ENCOUNTER 2018-02-17 18:10 | Emergency (ER) | payer OTHER ==
[~2018-02-17] VITALS: Ht 157.5 cm; Wt 81.6 kg
[~2018-02-17 18:10] MED LIST changes: -METF500T4; +METF500T5; +ONDA4TAB10 SL
--- NOTE | 2018-02-17 18:13 | ED.ADGEN ---
Past History Past Medical History: Anxiety, Asthma, Diabetes Past Surgical History: Cholecystectomy, Gastric Bypass Smoking: Non-smoker Alcohol Use: None Drug Use: None Adult General Chief Complaint Chief Complaint " .. I was in high heels.. at wedding .. . and slipped . fell on my Lt. knee and lower leg.. It was flexed under me.. I have bad knee's anyway..." HPI HPI Patient is a 47 year old female who presents with above hx and complaints of injury to left knee during fall. Patient distal neurovascular intact. Can do straight leg lift. Does have edema and left knee and upper tibia. Does have laxity on anterior draw. Old scars are noted on left knee. Patient does have a history of diabetes. Patient normally follows at [facility]. She rates pain in the at 10 out of 10 at time of injury and currently rates pain 8 out of 10. Patient has had previous meniscus injury. Review of Systems Review of Systems Constitutional: Denies fever or chills [] Eyes: Denies change in visual acuity, redness, or eye pain [] HENT: Denies nasal congestion or sore throat [] Respiratory: Denies cough or shortness of breath [] Cardiovascular: No additional information not addressed in HPI [] GI: Denies abdominal pain, nausea, vomiting, bloody stools or diarrhea [] : Denies dysuria or hematuria [] Musculoskeletal: Denies back pain or joint pain []Except severe pain in left knee as per history of present illness. Integument: Denies rash or skin lesions [] Neurologic: Denies headache, focal weakness or sensory changes [] Endocrine: Denies polyuria or polydipsia [] All other systems were reviewed and found to be within normal limits, except as documented in this note. Family History Family History Noncontributory Current Medications Current Medications Current Medications Medications (Trade) Dose Ordered Sig/Jaden Start Time Stop Time Status Last Admin Dose Admin Hydrocodone Bitartrate/ Ibuprofen (Vicoprofen 7.5-200) 2 tab 1X ONCE 02/17/18 18:30 02/17/18 18:34 DC 02/17/18 19:03 2 TAB Allergies Allergies Allergies Coded Allergies Type Severity Reaction Last Updated Verified codeine Allergy Intermediate hives 09/06/16 Yes Physical Exam Physical Exam Constitutional: in acute distress, non-toxic appearance. [] HENT: Normocephalic, atraumatic, bilateral external ears normal, oropharynx moist, no oral exudates, nose normal. [] Eyes: PERRLA, EOMI, conjunctiva normal, no discharge. [] Neck: Normal range of motion, no tenderness, supple, no stridor. [] Cardiovascular:Heart rate regular rhythm, no murmur [] Lungs & Thorax: Bilateral breath sounds scattered wheezes auscultation [] Abdomen: Bowel sounds normal, soft, no tenderness, no masses, no pulsatile masses. [] Obese & old surgery scars Skin: Warm, dry, no erythema, no rash. [] Back: No tenderness, no CVA tenderness. [] Extremities: No tenderness, no cyanosis, no clubbing, ROM intact, no edema. [] Except Findings and left knee as per history of present illness. Does have scars on right knee. Neurologic: Alert and oriented X 3, normal motor function, normal sensory function, no focal deficits noted. [] Psychologic: Affect anxious, judgement normal, mood normal. [] Current Patient Data Vital Signs Vital Signs Date Time Temp Pulse Resp B/P (MAP) Pulse Ox O2 Delivery O2 Flow Rate FiO2 02/17/18 20:00 86 16 118/76 (90) 98 Room Air 02/17/18 18:25 98.0 EKG EKG [] Radiology/Procedures Radiology/Procedures Interpretation of x-ray of left knee shows some edema but no obvious displaced fracture or dislocation. Course & Med Decision Making Course & Med Decision Making Pertinent Labs and Imaging studies reviewed. (See chart for details) Ice, elevation, rest, splint, crutches, and take [id number] Tylenol and ibuprofen for pain. For severe pain may take Vicoprofen up 4 times a day. Follow -up primary care and follow-up with orthopedics.. Distal neurovascular intact after application of splint. Some concern she may have damaged anterior cruciate ligament. Patient return if any concerns. [] Final Impression Final Impression 1. Sprain / Strain[] left of knee Dragon Disclaimer Dragon Disclaimer This electronic medical record was generated, in whole or in part, using a voice recognition dictation system. SHARMILA RUSSELL MD February 17, 2018 18:13
[2018-02-17] MEDS ORDERED: HYDROcodon/IBUPROFEN 7.5/200MG 1 TAB TABLET PO ONE (18:30)
[2018-02-17 20:00] VITALS: BP 118/76
[2018-02-17] MEDS ORDERED: HYDR-79 PO (20:00)
[2018-02-17] MEDS ORDERED: ACET500T68 PO (20:00)
[2018-02-17] MEDS ORDERED: IBUP400T18 PO (20:00)
--- NOTE | 2018-02-18 09:20 | RAD ---
KNEE LEFT 4V History: Fall today, left knee and lower leg injury. History left knee meniscus repair surgery Comparison: None. Findings: 4 views left knee are submitted. No acute fracture or dislocation is identified. There is no significant joint effusion. There is very mild osteoarthritic change. Impression: 1. No acute fracture is identified. There is very mild osteoarthritic change. Electronically signed by: Anatoly Jolley MD (02/18/2018 9:17 AM) [facility]
--- NOTE | 2018-02-18 09:21 | RAD ---
TIBIA FIBULA LEFT History: Fall today, left knee and lower leg injury. Hx left knee meniscus repair sx. Comparison: None. Findings: 2 views left tibia-fibula are submitted. No acute fracture or dislocation is identified. Impression: 1. No acute osseous abnormality is identified. Electronically signed by: Anatoly Jolley MD (02/18/2018 9:18 AM) [facility]
== END 2018-02-17 20:22 | disposition home or self-care (01) ==
LOC: ER 18:10
DX: S89.92XA Unspecified injury of left lower leg, initial encounter (principal); E11.9 Type 2 diabetes mellitus without complications; F41.9 Anxiety disorder, unspecified; J45.909 Unspecified asthma, uncomplicated; Z88.5 Allergy status to narcotic agent; W01.0XXA Fall on same level from slipping, tripping and stumbling without subsequent striking against object, initial encounter; Y93.89 Activity, other specified; Y99.8 Other external cause status; Y92.89 Other specified places as the place of occurrence of the external cause
CPT/HCPCS: 29505; 73564; 73590; 99284

== ENCOUNTER 2018-06-05 18:00 | Emergency (ER) | payer OTHER ==
[~2018-06-05] VITALS: Ht 157.5 cm; Wt 88.1 kg
[~2018-06-05 18:00] MED LIST changes: +ACET500T68 PO; +HYDR-79 PO; +IBUP400T18 PO; +METF500T16; -METF500T5
--- NOTE | 2018-06-05 18:44 | PHYS DOC ---
Past History Past Medical History: Anxiety, Asthma, Diabetes, Other Past Surgical History: Appendectomy, Cholecystectomy, Other Smoking: Non-smoker Alcohol Use: None Drug Use: None Adult General Chief Complaint Chief Complaint: HEADACHE HPI HPI 48-year-old female presents after fall at home. The patient was she using her granddaughter when she tripped over a scooter and fell to the floor. She hit the floor with her knees, but the left side of her shoulder, neck and head hit the arm of the couch. She now has left-sided neck pain, headache and left shoulder pain. She denies loss of consciousness. She denies any visual disturbance, weakness, tingling, change in voice or difficulty concentrating. She is able to move her neck, but states that it hurts more when she turns to the left. Review of Systems Review of Systems Constitutional: Denies fever or chills [] Eyes: Denies change in visual acuity, redness, or eye pain [] HENT: Denies nasal congestion or sore throat [] Respiratory: Denies cough or shortness of breath [] Cardiovascular: No additional information not addressed in HPI [] GI: Denies abdominal pain, nausea, vomiting, bloody stools or diarrhea [] : Denies dysuria or hematuria [] Musculoskeletal: Left shoulder and left sided neck pain[] Integument: Denies rash or skin lesions [] Neurologic: Headache. No focal weakness or sensory changes [] Endocrine: Denies polyuria or polydipsia [] All other systems were reviewed and found to be within normal limits, except as documented in this note. Allergies Allergies Allergies Coded Allergies Type Severity Reaction Last Updated Verified codeine Allergy Intermediate hives 06/05/18 Yes Physical Exam Physical Exam Constitutional: Well developed, well nourished, no acute distress, non-toxic appearance. [] HENT: Normocephalic, atraumatic, bilateral external ears normal, oropharynx moist, no oral exudates, nose normal. [] Eyes: PERRLA, EOMI, conjunctiva normal, no discharge. [] Neck: Tenderness in the mid cervical spine, pain with rotating her head to the left.[] Cardiovascular:Heart rate regular rhythm, no murmur [] Lungs & Thorax: Bilateral breath sounds clear to auscultation [] Abdomen: Bowel sounds normal, soft, no tenderness, no masses, no pulsatile masses. [] Skin: Warm, dry, no erythema, no rash. [] Back: No tenderness, no CVA tenderness. [] Extremities: Tenderness over the superior shoulder and along the left clavicle.[ ] Neurologic: Alert and oriented X 3, normal motor function, normal sensory function, no focal deficits noted. [] Psychologic: Affect normal, judgement normal, mood normal. [] Current Patient Data Vital Signs Vital Signs Date Time Temp Pulse Resp B/P (MAP) Pulse Ox O2 Delivery O2 Flow Rate FiO2 06/05/18 18:11 98.7 65 20 95 Room Air EKG EKG [] Radiology/Procedures Radiology/Procedures [] Impressions: PQRS Compliance statement: One or more of the following individualized dose reduction techniques were utilized for this examination: 1. Automated exposure control. 2. Adjustment of the mA and/or kV according to patient size. 3. Use of iterative reconstruction technique. Indication:FALL, HEAD AND NECK INJURY TECHNIQUE: CT head without IV contrast COMPARISON:None FINDINGS: No pathologic extra-axial or intra-axial fluid collection. The ventricles and basal cisterns are within normal limits. No acute intracranial bleed. No focal loss of gambino-white differentiation. Orbits are within normal limits. No acute calvarial fractures. Visualized paranasal sinuses and mastoid air cells are clear. IMPRESSION: No acute intracranial process. Indication:FALL, HEAD AND NECK INJURY TECHNIQUE: CT of the cervical spine without IV contrast with multiplanar reformats. COMPARISON:None FINDINGS: The cervical spine is in normal anatomic alignment. Atlantoaxial joint interval is preserved. No compression deformities. The facet joints are in normal anatomic alignment. No acute fractures. The noncontrast sections through the neck soft tissues are within normal limits. Visualized lungs are clear. IMPRESSION: No acute fractures. Electronically signed by: Gene Saldana DO (06/05/2018 7:39 PM) [facility] DICTATED AND SIGNED BY: GENE SALDANA DO DATE: 06/05/181932 CC: KAVON JARRELL DO; RAJENDRA RASMUSSEN MD ~ Course & Med Decision Making Course & Med Decision Making Pertinent Labs and Imaging studies reviewed. (See chart for details) Patient's head CT is negative. Her negative as well. I will give the patient had cocktail for her headache. I will give her 1 L normal saline, 25 mg Benadryl , 30 mg of Toradol, 10 mg Reglan. After period of rest, the patient was feeling much better. Her headache is decreased to a 3 out of 10 from a 8 out of 10. She feels like she can go home at this time. She is stable for discharge. [] Dragon Disclaimer Dragon Disclaimer This electronic medical record was generated, in whole or in part, using a voice recognition dictation system. Departure Departure: Referrals: RAJENDRA RASMUSSEN MD (PCP) KAVON JARRELL DO Jun 05, 2018 18:44
[2018-06-05 19:04] LABS: BASO # 0.1 x10^3/uL (0.0-0.2); BASO % 1 % (0-3); EOS # 0.1 x10^3/uL (0.0-0.7); EOS % 1 % (0-3); HEMATOCRIT 42.9 % (36.0-47.0); HEMOGLOBIN 14.3 g/dL (12.0-15.5); LYMPH # 3.3 x10^3/uL (1.0-4.8); LYMPH % 36 % (24-48); MEAN CORPUSCULAR HEMOGLOBIN 30 pg (25-35); MEAN CORPUSCULAR HGB CONC 33 g/dL (31-37); MEAN CORPUSCULAR VOLUME 91 fL (79-100); MONO # 0.9 x10^3/uL (0.0-1.1); MONO % 10 % (0-9); NEUT # 4.8 x10^3uL (1.8-7.7); NEUT % 52 % (31-73); PLATELET COUNT 220 x10^3/uL (140-400); RED BLOOD COUNT 4.72 x10^6/uL (3.50-5.40); RED CELL DISTRIBUTION WIDTH 14.2 % (11.5-14.5); WHITE BLOOD COUNT 9.2 x10^3/uL (4.0-11.0)
[2018-06-05 19:11] LABS: CALCIUM 8.5 mg/dL (8.5-10.1); CREATININE 0.9 mg/dL (0.6-1.0); GFR 66.8; POTASSIUM 3.7 mmol/L (3.5-5.1)
--- NOTE | 2018-06-05 19:42 | RAD ---
PQRS Compliance statement: One or more of the following individualized dose reduction techniques were utilized for this examination: 1. Automated exposure control. 2. Adjustment of the mA and/or kV according to patient size. 3. Use of iterative reconstruction technique. Indication:FALL, HEAD AND NECK INJURY TECHNIQUE: CT head without IV contrast COMPARISON:None FINDINGS: No pathologic extra-axial or intra-axial fluid collection. The ventricles and basal cisterns are within normal limits. No acute intracranial bleed. No focal loss of gambino-white differentiation. Orbits are within normal limits. No acute calvarial fractures. Visualized paranasal sinuses and mastoid air cells are clear. IMPRESSION: No acute intracranial process. Indication:FALL, HEAD AND NECK INJURY TECHNIQUE: CT of the cervical spine without IV contrast with multiplanar reformats. COMPARISON:None FINDINGS: The cervical spine is in normal anatomic alignment. Atlantoaxial joint interval is preserved. No compression deformities. The facet joints are in normal anatomic alignment. No acute fractures. The noncontrast sections through the neck soft tissues are within normal limits. Visualized lungs are clear. IMPRESSION: No acute fractures. Electronically signed by: Gene Saldana DO (06/05/2018 7:39 PM) [facility]
[2018-06-05] MEDS ORDERED: METOCLOPRAMIDE HCL 10 MG/2 ML VIAL. IV ONE (20:00)
[2018-06-05] MEDS ORDERED: KETOROLAC 30 MG/ML VIAL. IV ONE (20:00)
[2018-06-05] MEDS ORDERED: diphenhydrAMINE 50 MG/ML VIAL IVP ONE (20:00)
[2018-06-05 21:19] VITALS: BP 114/72
--- NOTE | 2018-06-05 23:13 | RAD ---
Indication:FALL, LEFT SHOULDER PAIN TECHNIQUE: 3 views of the left shoulder COMPARISON:None FINDINGS: No acute fracture or dislocation. Visualized left lung is clear. No soft tissue abnormality. No arthritic process. IMPRESSION: No acute findings. Electronically signed by: Gene Saldana DO (06/05/2018 11:10 PM) [facility]
== END 2018-06-05 21:37 | disposition home or self-care (01) ==
LOC: ER 18:00
DX: R51 Headache (principal); M25.512 Pain in left shoulder; M54.2 Cervicalgia; G89.11 Acute pain due to trauma; F41.9 Anxiety disorder, unspecified; J45.909 Unspecified asthma, uncomplicated; E11.9 Type 2 diabetes mellitus without complications; Z88.5 Allergy status to narcotic agent; W18.09XA Striking against other object with subsequent fall, initial encounter; Y93.89 Activity, other specified; Y92.098 Other place in other non-institutional residence as the place of occurrence of the external cause; Y99.8 Other external cause status
CPT/HCPCS: 36415; 70450; 72125; 73030; 80048; 85025; 96374; 96375; 99285; J1200; J1885; J2765

== ENCOUNTER 2021-03-23 13:48 | Emergency (ER) | payer OTHER ==
[~2021-03-23] VITALS: Ht 157.5 cm; Wt 88.1 kg
[~2021-03-23 13:48] MED LIST changes: +HYDR-1179 PO; -HYDR-2165; +HYDR-3070; -HYDR-79 PO
[2021-03-23] MEDS ORDERED: IV NORMAL SALINE 1,000ML 1,000 ML IV ONE (14:30)
[2021-03-23] MEDS ORDERED: diphenhydrAMINE HCL 25 MG CAPSULE PO ONE (14:30)
[2021-03-23] MEDS ORDERED: MECLIZINE 12.5 MG TABLET. PO ONE (14:30)
[2021-03-23] MEDS ORDERED: DEXAMETHASONE SOD PHOS 10 MG/ML VIAL. IVP ONE (14:30)
[2021-03-23] MEDS ORDERED: PROCHLORPERAZINE 10 MG/2 ML VIAL. IM ONE (14:30)
[2021-03-23 14:41] LABS: BASO # 0.1 x10^3/uL (0.0-0.2); BASO % 1 % (0-3); EOS # 0.1 x10^3/uL (0.0-0.7); EOS % 1 % (0-3); HEMATOCRIT 46.9 % (36.0-47.0); HEMOGLOBIN 15.7 g/dL (12.0-15.5); LYMPH # 2.6 x10^3/uL (1.0-4.8); LYMPH % 38 % (24-48); MEAN CORPUSCULAR HEMOGLOBIN 31 pg (25-35); MEAN CORPUSCULAR HGB CONC 33 g/dL (31-37); MEAN CORPUSCULAR VOLUME 92 fL (79-100); MONO # 0.6 x10^3/uL (0.0-1.1); MONO % 9 % (0-9); NEUT # 3.5 x10^3uL (1.8-7.7); NEUT % 52 % (31-73); PLATELET COUNT 262 x10^3/uL (140-400); RED BLOOD COUNT 5.11 x10^6/uL (3.50-5.40); RED CELL DISTRIBUTION WIDTH 14.9 % (11.5-14.5); WHITE BLOOD COUNT 6.9 x10^3/uL (4.0-11.0)
--- NOTE | 2021-03-23 14:48 | PHYS DOC ---
Past History Past Medical History: Anxiety, Asthma, Diabetes, Other Past Surgical History: Appendectomy, Cholecystectomy, Gastric Bypass, Other Smoking: Non-smoker Alcohol Use: Rarely Drug Use: None Adult General Chief Complaint Chief Complaint: HEADACHE HPI HPI Patient is a 50-year-old female who presents to the emergency room with multiple complaints. Patient states that her main reason for coming in today is due to dizziness and headache. She states that she had to go to dialysis a couple of weeks ago and returned on Father's Day. She states since that time she feels pressure in her left ear. She started getting a headache a couple of days ago that is frontal in nature and then moves backwards. She does have a history of migraines and this does feel similar. She does not typically get dizziness, ear pressure, or other symptoms with her migraines. She did try to take her Imitrex which typically makes her migraines go away but this did not resolve her headache. She states her dizziness gets worse with any kind of movement. She also has had intermittent chest pains for the last several days. Most of her chest pain has been in the middle of the night. Of note patient did have some kind of procedure to drain fluid out of the back of her cervical spine as well as have a bone spur taken off. Patient has not had true fever. She denies any vomiting though she has had some nausea. She denies any numbness or weakness. Review of Systems Review of Systems Complete ROS is negative unless otherwise documented in HPI Current Medications Current Medications Current Medications Medications (Trade) Dose Ordered Sig/Jaden Start Time Stop Time Status Last Admin Dose Admin Cetirizine HCl (ZyrTEC) 10 mg DAILY 03/24/21 09:00 Dexamethasone Sodium Phosphate (Decadron) 10 mg 1X ONCE 03/23/21 14:30 03/23/21 14:31 UNV Diphenhydramine HCl (Benadryl) 25 mg 1X ONCE 03/23/21 14:30 03/23/21 14:31 Meclizine HCl (Antivert) 25 mg 1X ONCE 03/23/21 14:30 03/23/21 14:31 Prochlorperazine Edisylate (Compazine) 10 mg 1X ONCE 03/23/21 14:30 03/23/21 14:31 Sodium Chloride 1,000 ml @ 1,000 mls/hr 1X ONCE 03/23/21 14:30 03/23/21 15:29 UNV Allergies Allergies Allergies Coded Allergies Type Severity Reaction Last Updated Verified codeine Allergy Intermediate hives 06/05/18 Yes Physical Exam Physical Exam General: Awake, alert, NAD. Well Nourished, well hydrated. Cooperative HEENT: Atraumatic, EOMI, PERRL, airway patent, moist oral mucosa, nystagmus Neck: Supple, trachea midline Respiratory: CTA bilaterally, normal effort, no wheezing/crackles CV: RRR, no murmur, cap refill <2 GI: Soft, nondistended, nontender, no masses MSK: No obvious deformities Skin: Warm, dry, intact Neuro: A&O x3, speech NL, 5/5 strength in BUE/BLE distally and proximally, CN 2- 12 intact, cerebellar testing normal Psych: Normal affect, normal mood, not suicidal or homicidal Current Patient Data Vital Signs Vital Signs Date Time Temp Pulse Resp B/P (MAP) Pulse Ox O2 Delivery O2 Flow Rate FiO2 03/23/21 14:02 98.2 97 16 138/86 (103) 98 Room Air Lab Results Laboratory Tests Test 03/23/21 14:06 White Blood Count 6.9 x10^3/uL (4.0-11.0) Red Blood Count 5.11 x10^6/uL (3.50-5.40) Hemoglobin 15.7 g/dL (12.0-15.5) H Hematocrit 46.9 % (36.0-47.0) Mean Corpuscular Volume 92 fL (79-100) Mean Corpuscular Hemoglobin 31 pg (25-35) Mean Corpuscular Hemoglobin Concent 33 g/dL (31-37) Red Cell Distribution Width 14.9 % (11.5-14.5) H Platelet Count 262 x10^3/uL (140-400) Neutrophils (%) (Auto) 52 % (31-73) Lymphocytes (%) (Auto) 38 % (24-48) Monocytes (%) (Auto) 9 % (0-9) Eosinophils (%) (Auto) 1 % (0-3) Basophils (%) (Auto) 1 % (0-3) Neutrophils # (Auto) 3.5 x10^3uL (1.8-7.7) Lymphocytes # (Auto) 2.6 x10^3/uL (1.0-4.8) Monocytes # (Auto) 0.6 x10^3/uL (0.0-1.1) Eosinophils # (Auto) 0.1 x10^3/uL (0.0-0.7) Basophils # (Auto) 0.1 x10^3/uL (0.0-0.2) EKG EKG [] Radiology/Procedures Radiology/Procedures [] Heart Score C/O Chest Pain: N/A Risk Factors: Risk Factors: DM, Current or recent (<one month) smoker, HTN, HLP, family history of CAD, obesity. Risk Scores: Risk Factors: DM, Current or recent (<one month) smoker, HTN, HLP, family history of CAD, obesity. Course & Med Decision Making Course & Med Decision Making Pertinent Labs and Imaging studies reviewed. (See chart for details) Patient is a 50-year-old female who presents to the emergency room with multiple concerns. On exam patient's pupils are round, reactive, and she has nystagmus. She does not appear to have any acute angle-closure glaucoma on exam. Nystagmus suggests a more peripheral pathology. It is possible that this is due to the ear pressure and she is having some vertigo along with a migraine. Given patient's recent surgery will do a CT of her head and neck. Surgery was 3 weeks prior to this making secondary infection less likely. Patient will be treated for migraine and vertigo. Chest x-ray, EKG, troponin will also be done for patient's intermittent chest pain. Work-up is unremarkable. Patient is feeling significantly better after migraine cocktail and meclizine. We will place her on Zyrtec and meclizine at home. Patient's test results and vitals while in the ED were fully reviewed and discussed with the patient. Patient is stable and at this time does not need admission to the hospital. We have discussed strict return precautions and the importance of following up with their Primary Care Physician. Patient stated understanding and was given an opportunity to ask any questions. Patient is in agreement with plan. Dragon Disclaimer Dragon Disclaimer This electronic medical record was generated, in whole or in part, using a voice recognition dictation system. Departure Departure: Impression: Primary Impression: Vertigo Additional Impression: Migraine Disposition: HOME / SELF CARE / HOMELESS Condition: IMPROVED Referrals: JOSIAH BENITES DO (PCP) Patient Instructions: Migraine Headache, Vertigo Scripts Cetirizine Hcl/Pseudoephedrine (ZYRTEC-D TABLET) 1 Each Tab.er.12h 1 TAB PO DAILY for allergies for 10 Days, #10 TAB Prov: NAHUM HAWKINS MD 03/23/21 Meclizine Hcl (MECLIZINE HCL) 25 Mg Tablet 1 TAB PO PRN TID for dizziness, #30 TAB Prov: NAHUM HAWKINS MD 03/23/21 Problem Qualifiers NAHUM HAWKINS MD Mar 23, 2021 14:48
[2021-03-23 14:51] LABS: ALBUMIN 3.7 g/dL (3.4-5.0); ALBUMIN/GLOBULIN RATIO 0.9 (1.0-1.7); CALCIUM 9.3 mg/dL (8.5-10.1); CREATININE 0.7 mg/dL (0.6-1.0); GFR 88.6; POTASSIUM 3.9 mmol/L (3.5-5.1); TOTAL BILIRUBIN 0.3 mg/dL (0.2-1.0); TOTAL PROTEIN 7.9 g/dL (6.4-8.2)
[2021-03-23 14:58] LABS: BILIRUBIN,URINE NEG (NEG); CLARITY,URINE CLEAR; COLOR,URINE YELLOW; GLUCOSE,URINE NEG (NEG); UROBILINOGEN,URINE 0.2 mg/dL (0.2 mg/dL)
[2021-03-23 14:59] LABS: NITRITE,URINE NEG (NEG)
[2021-03-23 15:07] LABS: BACTERIA,URINE FEW /HPF (0-FEW); RBC,URINE RARE /HPF (0-2); SQUAMOUS EPITHELIAL CELL,UR OCC /LPF; WBC,URINE OCC /HPF (0-4)
--- NOTE | 2021-03-23 15:10 | RAD ---
EXAM: Chest, 2 views. HISTORY: Chest pain. COMPARISON: None. FINDINGS: 2 views of the chest are obtained. There is no infiltrate, pleural effusion or pneumothorax . The heart is normal in size. IMPRESSION: No acute pulmonary finding. Electronically signed by: Sheron Solis MD (03/23/2021 3:08 PM) [id number]
--- NOTE | 2021-03-23 15:20 | RAD ---
CT HEAD AND C-SPINE WO History: Reason: recent procedure, neck pain, headache / Spl. Instructions: / History: Comparison: June 05, 2018 Technique: Noncontrast CT imaging was performed of the head and cervical spine. Coronal and sagittal reconstructions were performed. Exposure: One or more of the following individualized dose reduction techniques were utilized for thi s examination: 1. Automated exposure control 2. Adjustment of the mA and/or kV according to patient size 3. Use of iterative reconstruction technique. Findings: Head CT: No intracranial hemorrhage. No mass effect. No hydrocephalus. Extra-axial spaces are unrema rkable. Imaged orbits are unremarkable. Imaged paranasal sinuses and mastoid air cells are clear. No acute ca lvarial fracture. Cervical spine CT: Normal vertebral body height and alignment. No fracture. Mild degenerative disc changes most prominent C5-C6. No high-grade canal or neuroforaminal narrowing. Soft tissues unremarkable. Impression: Head CT: 1. No acute intracranial abnormality. Cervical spine CT: 1. No acute fracture or subluxation of the cervical spine. Electronically signed by: Moshe Carbajal DO (03/23/2021 3:18 PM) [facility]
[2021-03-23] MEDS ORDERED: MECL-75 PO (16:16)
[2021-03-23] MEDS ORDERED: CETI1TAB7 PO (16:16)
[2021-03-23 16:44] VITALS: BP 142/78
--- NOTE | 2021-03-23 20:46 | EKG ---
[address] [address] Test Date: 2021-03-23 Test Time: 14:40:17 Pat Name: REJI LIMON Department: Room: Gender: F General Activities Therapist: ADITI : 1970 Requested By: NAHUM HAWKINS Order Number: [id number] Reading MD: Measurements Intervals [place] Rate: 80 P: 34 IA: 154 QRS: 4 QRSD: 86 T: 17 QT: 372 QTc: 433 Interpretive Statements SINUS RHYTHM NORMAL ECG RI6.02 No previous ECG available for comparison
[2021-03-24] MEDS ORDERED: CETIRIZINE HCL 10 MG TABLET PO SCH (09:00)
== END 2021-03-23 16:15 | disposition home or self-care (01) ==
LOC: ER 13:48
DX: G43.909 Migraine, unspecified, not intractable, without status migrainosus (principal); R42 Dizziness and giddiness; R07.89 Other chest pain; F41.9 Anxiety disorder, unspecified; J45.909 Unspecified asthma, uncomplicated; E11.9 Type 2 diabetes mellitus without complications; Z88.5 Allergy status to narcotic agent
CPT/HCPCS: 36415; 70450; 71046; 72125; 80053; 81001; 84484; 85025; 93005; 96361; 96372; 96374; 99285; J0780; J1100; J7030; Q0163

== ENCOUNTER 2021-06-10 17:47 | Emergency (ER) | payer OTHER ==
[~2021-06-10] VITALS: Ht 157.5 cm; Wt 93.3 kg
[~2021-06-10 17:47] MED LIST changes: +CETI1TAB7 PO; +MECL-75 PO
[2021-06-10 18:44] VITALS: BP 132/76
[2021-06-10] MEDS ORDERED: CEPH500T PO (18:55)
[2021-06-10] MEDS ORDERED: TRIA15OI TP (18:55)
--- NOTE | 2021-06-10 18:55 | PHYS DOC ---
Past History Past Medical History: Anxiety, Asthma, Diabetes, Other Past Surgical History: No Surgical History Smoking: Non-smoker Alcohol Use: None Drug Use: None General Adult EDM: Chief Complaint: SKIN PROBLEM HPI: HPI: 51-year-old female presents with insect bites of her bilateral hands. The right hand is worse than the left. This happened sometime yesterday when she was sitting outside talking with a friend. Both her and her friend admit. She presents today because her right dorsal hand is erythematous and swollen. Both hands are pruritic. She is concerned about infection. She denies fever or chills. She has no other complaints this time. Review of Systems: Review of Systems: Constitutional: Denies fever or chills Eyes: Denies change in visual acuity HENT: Denies nasal congestion or sore throat Respiratory: Denies cough or shortness of breath Cardiovascular: Denies chest pain or edema GI: Denies abdominal pain, nausea, vomiting, bloody stools or diarrhea : Denies dysuria Musculoskeletal: Denies back pain or joint pain Integument: Insect bites, cellulitis Neurologic: Denies headache, focal weakness or sensory changes Endocrine: Denies polyuria or polydipsia Lymphatic: Denies swollen glands Psychiatric: Denies depression or anxiety Allergies: Allergies: Allergies Coded Allergies Type Severity Reaction Last Updated Verified codeine Allergy Intermediate hives 06/05/18 Yes Physical Exam: PE: Constitutional: Well developed, well nourished, morbidly obese, no acute distress, non-toxic appearance. [] HENT: Normocephalic, atraumatic, bilateral external ears normal, oropharynx moist, no oral exudates, nose normal. [] Eyes: PERRLA, EOMI, conjunctiva normal, no discharge. [] Neck: Normal range of motion, no tenderness, supple, no stridor. [] Cardiovascular:Heart rate regular rhythm, no murmur [] Lungs & Thorax: Bilateral breath sounds clear to auscultation [] Abdomen: Bowel sounds normal, soft, no tenderness, no masses, no pulsatile masses. [] Skin: Single insect bite of the right hand with 4 cm of surrounding erythema and warmth. Single insect bite of the left hand with 1 cm of erythema no warmth. [] Back: No tenderness, no CVA tenderness. [] Extremities: No tenderness, no cyanosis, no clubbing, ROM intact, no edema. [] Neurologic: Alert and oriented X 3, normal motor function, normal sensory function, no focal deficits noted. [] Psychologic: Affect normal, judgement normal, mood normal. [] Current Patient Data: Vital Signs: Vital Signs Date Time Temp Pulse Resp B/P (MAP) Pulse Ox O2 Delivery O2 Flow Rate FiO2 06/10/21 18:44 93.3 77 16 132/76 (94) 99 EKG: EKG: [] Radiology/Procedures: Radiology/Procedures: [] Heart Score: C/O Chest Pain: N/A Risk Factors: Risk Factors: DM, Current or recent (<one month) smoker, HTN, HLP, family history of CAD, obesity. Risk Scores: Score 0 - 3: 2.5% MACE over next 6 weeks - Discharge Home Score 4 - 6: 20.3% MACE over next 6 weeks - Admit for Clinical Observation Score 7 - 10: 72.7% MACE over next 6 weeks - Early Invasive Strategies Course & Med Decision Making: Course & Med Decision Making Pertinent Labs and Imaging studies reviewed. (See chart for details) The patient's bites are consistent with spider bites. Her right hand appears to be cellulitic. I will treat her with Keflex for 7 days. I will also discharge her with a prescription for triamcinolone and I recommended oral Benadryl for control of the itching. She is stable for discharge at this time. [] Brayan Disclaimer: Brayan Disclaimer: This electronic medical record was generated, in whole or in part, using a voice recognition dictation system. Departure Departure: Impression: Primary Impression: Insect bite Qualified Codes: S60.569A - Insect bite (nonvenomous) of unspecified hand, initial encounter; W57.XXXA - Bitten or stung by nonvenomous insect and other nonvenomous arthropods, initial encounter Additional Impression: Cellulitis of hand Disposition: 01 HOME / SELF CARE / HOMELESS Condition: STABLE Referrals: JOSIAH BENITES DO (PCP) Patient Instructions: Cellulitis, [id number] Scripts Triamcinolone Acetonide (TRIAMCINOLONE ACETONIDE 0.1% OINT) 15 Gm Oint...g. 1 ANA TP BID for insect bite, #1 EACH 1 Refill Prov: KAVON JARRELL DO 06/10/21 Cephalexin (CEPHALEXIN) 500 Mg Tablet 1 TAB PO TID for cellulitis for 7 Days, #21 TAB Prov: KAVON JARRELL DO 06/10/21 KAVON JARRELL DO Jun 10, 2021 18:55
== END 2021-06-10 19:00 | disposition home or self-care (01) ==
LOC: ER 17:47
DX: S60.561A Insect bite (nonvenomous) of right hand, initial encounter (principal); S60.562A Insect bite (nonvenomous) of left hand, initial encounter; L03.113 Cellulitis of right upper limb; J45.909 Unspecified asthma, uncomplicated; E11.9 Type 2 diabetes mellitus without complications; Z88.5 Allergy status to narcotic agent; W57.XXXA Bitten or stung by nonvenomous insect and other nonvenomous arthropods, initial encounter; Y93.89 Activity, other specified; Y92.89 Other specified places as the place of occurrence of the external cause; Y99.8 Other external cause status
CPT/HCPCS: 99283

== ENCOUNTER 2021-08-13 07:23 | Emergency (ER) | payer OTHER ==
[~2021-08-13] VITALS: Ht 157.5 cm; Wt 92.4 kg
[~2021-08-13 07:23] MED LIST changes: +CEPH500T PO; +PHEN30CA15 PO; -PHEN30CA3 PO; +TRIA15OI32 TP
--- NOTE | 2021-08-13 07:48 | PHYS DOC ---
Past History Past Medical History: Anxiety, Asthma, Diabetes, Other Past Surgical History: Appendectomy, Cholecystectomy, Tonsillectomy, Other Additional Past Surgical Histo: carpal tunnel, L knee, septoplatsy, abd surgery for endometeriosis, shoulde Smoking: Non-smoker Alcohol Use: None Drug Use: None General Adult EDM: Chief Complaint: CHEST PAIN HPI: HPI: 51-year-old female presents with chest pain. The patient woke up this morning at 3:30 in the morning with central chest pain. She describes it as a heaviness feeling. It is a 7 out of 10. Denies shortness of breath or diaphoresis. She has not been having chest discomfort or shortness of breath recently. 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 She avoids that substance and has had no difficulty since. The patient did get her COVID-19 booster shot yesterday. She did have some typical reactions to the first 2 shots such as fatigue, headache, body aches. The chest pain is new. She denies fever or chills. Review of Systems: Review of Systems: Constitutional: Denies fever or chills Eyes: Denies change in visual acuity HENT: Denies nasal congestion or sore throat Respiratory: Denies cough or shortness of breath Cardiovascular: Chest pain GI: Denies abdominal pain, nausea, vomiting, bloody stools or diarrhea : Denies dysuria Musculoskeletal: Denies back pain or joint pain Integument: Denies rash Neurologic: Denies headache, focal weakness or sensory changes Endocrine: Denies polyuria or polydipsia Lymphatic: Denies swollen glands Psychiatric: Denies depression or anxiety Allergies: Allergies: Allergies Coded Allergies Type Severity Reaction Last Updated Verified codeine Allergy Intermediate hives 08/13/21 Yes Physical Exam: PE: Constitutional: Well developed, well nourished, obese, no acute distress, non-t oxic appearance. [] HENT: Normocephalic, atraumatic, bilateral external ears normal, oropharynx moist, no oral exudates, nose normal. [] Eyes: PERRLA, EOMI, conjunctiva normal, no discharge. [] Neck: Normal range of motion, no tenderness, supple, no stridor. [] Cardiovascular: Heart rate 101, regular rhythm, no murmur [] Lungs & Thorax: Bilateral breath sounds clear to auscultation [] Abdomen: Bowel sounds normal, soft, no tenderness, no masses, no pulsatile masses. [] Skin: Warm, dry, no erythema, no rash. [] Back: No tenderness, no CVA tenderness. [] Extremities: No tenderness, no cyanosis, no clubbing, ROM intact, no edema. [] Neurologic: Alert and oriented X 3, normal motor function, normal sensory function, no focal deficits noted. [] Psychologic: Affect normal, judgement normal, mood concerned. [] Current Patient Data: Vital Signs: Vital Signs Date Time Temp Pulse Resp B/P (MAP) Pulse Ox O2 Delivery O2 Flow Rate FiO2 08/13/21 07:36 98.1 100 21 122/76 (91) 96 Room Air EKG: EKG: Sinus rhythm, rate 101, normal axis, no ST elevation or depression. [] Radiology/Procedures: Radiology/Procedures: [] Impressions: XR CHEST 1V CLINICAL INDICATIONS: Chest pain. COMPARISON: March 14, 2021. Findings: No acute lung infiltrate or pleural effusion or pulmonary edema or lung mass or pneumothorax is seen. The heart size, pulmonary vasculature, mediastinum and both elton are unremarkable. IMPRESSION: No acute radiographic abnormality is seen. Electronically signed by: Hilaria Phillips MD (08/13/2021 8:17 AM) [id number] DICTATED AND SIGNED BY: HILARIA PHILLIPS MD DATE: 08/13/21 0814 CC: JOSIAH BENITES DO; KAVON JARRELL DO ~MTH0 0 Heart Score: C/O Chest Pain: Yes HEART Score for Chest Pain: HEART Score for Chest Pain Response (Comments) Value History Slighlty/Non-Suspicious 0 ECG Normal 0 Age >45 - < 65 1 Risk Factors 1 or 2 Risk Factors 1 Troponin < Normal Limit 0 Total 2 Risk Factors: Risk Factors: DM, Current or recent (<one month) smoker, HTN, HLP, family history of CAD, obesity. Risk Scores: Score 0 - 3: 2.5% MACE over next 6 weeks - Discharge Home Score 4 - 6: 20.3% MACE over next 6 weeks - Admit for Clinical Observation Score 7 - 10: 72.7% MACE over next 6 weeks - Early Invasive Strategies Course & Med Decision Making: Course & Med Decision Making Pertinent Labs and Imaging studies reviewed. (See chart for details) The patient's EKG is unremarkable except for slight tachycardia 101. Patient's chest x-ray is negative for acute findings. Her labs are unremarkable. Her troponin is negative. I will try 20 mg of Pepcid IV. This could also be a reaction to her booster shot. Her heart score is a 2. The Pepcid did not really make a difference for the patient. I believe this is most likely reacti on to her Covid booster shot. I do not see any concerning cardiopulmonary findings. If this does not improve she will follow-up with her primary care physician. If her condition worsens in any way she will come back to the emergency room. She is stable for discharge at this time. [] Brayan Disclaimer: Brayan Disclaimer: This electronic medical record was generated, in whole or in part, using a voice recognition dictation system. Departure Departure: Impression: Primary Impression: Chest pain Qualified Codes: R07.89 - Other chest pain Disposition: HOME / SELF CARE / HOMELESS Condition: STABLE Referrals: JOSIAH BENITES DO (PCP) Patient Instructions: Chest Pain (Nonspecific), [id number] KAVON JARRELL DO Aug 13, 2021 07:48
[2021-08-13] MEDS ORDERED: ASPIRIN CHEWABLE 81 MG TABLET. PO ONE (08:00)
[2021-08-13 08:07] LABS: BASO # 0.1 x10^3/uL (0.0-0.2); BASO % 1 % (0-3); EOS # 0.1 x10^3/uL (0.0-0.7); EOS % 1 % (0-3); HEMATOCRIT 44.1 % (36.0-47.0); HEMOGLOBIN 14.6 g/dL (12.0-15.5); LYMPH # 1.5 x10^3/uL (1.0-4.8); LYMPH % 19 % (24-48); MEAN CORPUSCULAR HEMOGLOBIN 31 pg (25-35); MEAN CORPUSCULAR HGB CONC 33 g/dL (31-37); MEAN CORPUSCULAR VOLUME 93 fL (79-100); MONO # 0.7 x10^3/uL (0.0-1.1); MONO % 9 % (0-9); NEUT # 5.4 x10^3uL (1.8-7.7); NEUT % 70 % (31-73); PLATELET COUNT 217 x10^3/uL (140-400); RED BLOOD COUNT 4.77 x10^6/uL (3.50-5.40); RED CELL DISTRIBUTION WIDTH 13.9 % (11.5-14.5); WHITE BLOOD COUNT 7.7 x10^3/uL (4.0-11.0)
[2021-08-13 08:15] LABS: CALCIUM 9.1 mg/dL (8.5-10.1); CREATININE 0.8 mg/dL (0.6-1.0); GFR 75.6; POTASSIUM 3.7 mmol/L (3.5-5.1)
--- NOTE | 2021-08-13 08:20 | RAD ---
XR CHEST 1V CLINICAL INDICATIONS: Chest pain. COMPARISON: March 14, 2021. Findings: No acute lung infiltrate or pleural effusion or pulmonary edema or lung mass or pneumothorax is seen. The heart size, pulmonary vasculature, mediastinum and both hi la are unremarkable. IMPRESSION: No acute radiographic abnormality is seen. Electronically signed by: Byron Phillips MD (08/13/2021 8:17 AM) [id number]
[2021-08-13 08:21] LABS: ALBUMIN 3.6 g/dL (3.4-5.0); ALBUMIN/GLOBULIN RATIO 0.9 (1.0-1.7); TOTAL BILIRUBIN 0.4 mg/dL (0.2-1.0); TOTAL PROTEIN 7.8 g/dL (6.4-8.2)
--- NOTE | 2021-08-13 08:22 | EKG ---
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
[2021-08-13] MEDS ORDERED: FAMOTIDINE 20 MG/2 ML VIAL IVP ONE (08:30)
[2021-08-13 09:14] VITALS: BP 103/69
== END 2021-08-13 09:17 | disposition home or self-care (01) ==
LOC: ER 07:23
DX: R07.89 Other chest pain (principal); J45.909 Unspecified asthma, uncomplicated; E11.9 Type 2 diabetes mellitus without complications; Z90.49 Acquired absence of other specified parts of digestive tract; Z88.5 Allergy status to narcotic agent
CPT/HCPCS: 36415; 71045; 80053; 84484; 85025; 93005; 96374; 99285; J3490